=== PATIENT | female | born 1990 | race African-American/Black ===

== ENCOUNTER 2020-07-29 15:03 | Emergency (ER) | payer OTHER ==
[~2020-07-29] VITALS: Ht 177.8 cm; Wt 58.7 kg
[2020-07-29] MEDS ORDERED: dexameTHASONE 20MG/5ML VIAL (J1100 PER 1MG) IV ONE (15:30)
[2020-07-29 15:55] LABS: BASO % 0.4 % (0.0-1.0); EOS % 0.1 % (0.0-3.0); HEMATOCRIT 39.2 % (36.0-47.0); HEMOGLOBIN 13.2 g/dl (12.0-15.5); LYMPH # 1.7 10^3/uL (1.5-5.0); LYMPH % 16.7 % (24.0-44.0); MEAN CORPUSCULAR HEMOGLOBIN 30.8 pg (27.0-33.0); MEAN CORPUSCULAR HGB CONC 33.7 g/dl (32.0-36.5); MEAN CORPUSCULAR VOLUME 91.6 fl (80.0-96.0); MONO # 0.2 10^3/uL (0.0-0.8); MONO % 2.1 % (2.0-8.0); NEUTROPHILS # 8.2 10^3/uL (1.5-8.5); NEUTROPHILS % 80.3 % (36.0-66.0); PLATELET COUNT, AUTOMATED 286 10^3/uL (150-450); RED BLOOD COUNT 4.28 10^6/uL (4.00-5.40); WHITE BLOOD COUNT 10.2 10^3/uL (4.0-10.0)
--- NOTE | 2020-07-29 15:55 | REP ---
INDICATION: DYSPNEA/COUGH. COMPARISON: None. TECHNIQUE: Portable FINDINGS: The technique utilized in obtaining the radiograph has magnified the cardiac silhouette and accentuated the interstitial markings. The superior mediastinal structures are midline. The cardiac silhouette is unremarkable in size, shape, and position. The diaphragmatic surfaces of the lungs are regular, and the costophrenic angles are clear. The pulmonary resendiz are clear. The imaged osseous structures are intact. IMPRESSION: There is no acute cardiopulmonary disease. <Electronically signed by Lui Kemp > 07/29/20 0027
[2020-07-29] MEDS: ALBUTEROL 90 MCG/ACT 8GM HFA INHALER INH SCH ×3 (16:03→16:50)
[2020-07-29 16:08] LABS: INR 0.96
[2020-07-29 16:11] LABS: D-DIMER QUANT 466.54 ng/ml (<500)
[2020-07-29] MEDS ORDERED: ISOVUE-370 76% 100ML VIAL As Ordered ONE (16:51)
[2020-07-29] MEDS ORDERED: diazePAM 2 MG TAB PO ONE (17:15)
--- NOTE | 2020-07-29 18:04 | REPVR ---
PROCEDURE INFORMATION: Exam: CTA Chest With Contrast Exam date and time: 07/29/2020 5:18 PM Age: 30 years old Clinical indication: Chest pain; Additional info: Chest pain/ SOB TECHNIQUE: Imaging protocol: Computed tomographic angiography of the chest with contrast. 3D rendering (Not supervised by radiologist): MIP and/or 3D reconstructed images were created by the technologist. Radiation optimization: All CT scans at this facility use at least one of these dose optimization techniques: automated exposure control; mA and/or kV adjustment per patient size (includes targeted exams where dose is matched to clinical indication); or iterative reconstruction. Contrast material: ISOVUE 370; Contrast volume: 75 ml; Contrast route: INTRAVENOUS (IV); COMPARISON: [place] PORTABLE CHEST X-RAY 07/29/2020 3:42 PM FINDINGS: Pulmonary arteries: Normal. No pulmonary emboli. Aorta: Unremarkable. No aortic aneurysm. No aortic dissection. Lungs: Unremarkable. No consolidation. No masses. Pleural spaces: Unremarkable. No pneumothorax. No pleural effusion. Heart: Unremarkable. No cardiomegaly. No pericardial effusion. Lymph nodes: Unremarkable. No enlarged lymph nodes. Bones/joints: Unremarkable. No acute fracture. Soft tissues: Unremarkable. IMPRESSION: No acute findings. Electronically signed by: Hesham Babin On 07/29/2020 18:04:53 PM
[2020-07-29] MEDS ORDERED: POTASSIUM CHLORIDE 10 MEQ SR TABLET PO ONE (19:45)
[2020-07-29] MEDS ORDERED: KETOROLAC 30 MG/ML 1ML VIAL IV ONE (20:45)
[2020-07-29] MEDS ORDERED: NORCO, ANEXSIA 5/325MG TABLET (HYDROcodone/ACETAMINOPHEN) PO ONE (22:00)
[2020-07-29] MEDS ORDERED: PRED10TA2 PO (22:06)
[2020-07-29] MEDS ORDERED: KETO10TAB PO (22:06)
[2020-07-29] MEDS ORDERED: NORCO 5/325MG TABLET (BULK FOR ED) PO ONE (22:10)
[2020-07-29 22:22] VITALS: BP 134/89
--- NOTE | 2020-07-30 07:58 | ECGEPIP ---
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
== END 2020-07-29 22:32 | disposition home or self-care (01) ==
LOC: M ED 15:03
DX: R06.00 Dyspnea, unspecified (principal); J45.909 Unspecified asthma, uncomplicated
CPT/HCPCS: 71045; 71275; 80047; 84702; 85025; 85379; 85610; 93005; 93041; 94640; 94664; 94760; 96374; 96375; 99285; J1100; J1885; Q9967

== ENCOUNTER 2020-08-05 21:53 | Inpatient (IN) | payer OTHER ==
[~2020-08-05] VITALS: Ht 157.5 cm; Wt 57.9 kg
[~2020-08-05 21:53] MED LIST: KETO10TAB PO; PRED10TA2 PO
[2020-08-05] MEDS ORDERED: ALBU83IN NEB (22:33)
[2020-08-05] MEDS ORDERED: ALBU83IN INH (22:33)
[2020-08-05] MEDS ORDERED: KETOROLAC 60MG 2ML VIAL IM ONE (23:25)
[2020-08-05] MEDS ORDERED: methocarbamoL 750 MG TAB PO ONE (23:25)
[2020-08-05] MEDS ORDERED: KETOROLAC 30 MG/ML 1ML VIAL IV ONE (23:55)
--- NOTE | 2020-08-06 00:10 | REPVR ---
PROCEDURE INFORMATION: Exam: XR Chest Exam date and time: 08/05/2020 11:36 PM Age: 30 years old Clinical indication: Chest pain TECHNIQUE: Imaging protocol: XR of the chest. Views: 2 views. COMPARISON: 1. [place] PORTABLE CHEST X-RAY 2020-07-29 15:[address] ANGIO CHEST 2020-07-29 17:00 FINDINGS: Lungs: Unremarkable. No consolidation. Pleural spaces: Unremarkable. No pleural effusion. No pneumothorax. Heart/Mediastinum: Unremarkable. No cardiomegaly. Bones/joints: Unremarkable. IMPRESSION: No acute findings. Electronically signed by: Taye Nash On 08/06/2020 00:09:55 AM
[2020-08-06 00:38] LABS: BASO # 0.1 10^3/uL (0.0-0.2); BASO % 0.5 % (0.0-1.0); HEMOGLOBIN 14.4 g/dl (12.0-15.5); LYMPH # 1.2 10^3/uL (1.5-5.0); LYMPH % 11.7 % (24.0-44.0); MEAN CORPUSCULAR HGB CONC 34.3 g/dl (32.0-36.5); MEAN CORPUSCULAR VOLUME 90.3 fl (80.0-96.0); MONO # 0.2 10^3/uL (0.0-0.8); NEUTROPHILS # 8.5 10^3/uL (1.5-8.5); NEUTROPHILS % 85.4 % (36.0-66.0); PLATELET COUNT, AUTOMATED 317 10^3/uL (150-450); RED BLOOD COUNT 4.65 10^6/uL (4.00-5.40)
[2020-08-06] MEDS ORDERED: LEVALBUTEROL HFA 45MCG/ACT 15 GM INHALER INH ONE (00:45)
[2020-08-06 01:02] LABS: ALBUMIN 4.6 GM/DL (3.2-5.2); ALT/SGPT 14 U/L (12-78); BILIRUBIN,DIRECT 0.2 MG/DL (0.0-0.2); BILIRUBIN,TOTAL 0.8 MG/DL (0.2-1.0); CK-MB VALUE MASS < 1.0 NG/ML (<3.6); CPK CREATINE PHOSPHOKINASE 96 U/L (26-192); MB/CK RELATIVE INDEX 1.04 (< OR =4); TOTAL PROTEIN 8.6 GM/DL (6.4-8.2); TROPONIN I < 0.02 NG/ML (< 0.10)
[2020-08-06 01:54] LABS: VENOUS BASE EXCESS -5.3 (-2.0-2.0); VENOUS HCO3 16.2 MEQ/L (23.0-27.0); VENOUS PARTIAL PRESSURE CO2 22.4 mmHg (38.0-50.0); VENOUS PARTIAL PRESSURE O2 85.4 mmHg (30.0-50.0); VENOUS PH 7.477 UNITS (7.330-7.430); VENOUS STANDARD HCO3 20.1 MEQ/L; VENOUS TOTAL CO2 16.9 MEQ/L (24.0-28.0)
[2020-08-06] MEDS ORDERED: METHOCARBAMOL 1,000 MG/10 ML VIAL (J2800) IV ONE (02:20)
[2020-08-06] MEDS ORDERED: methylPREDNISolone 125MG 2ML VIAL IV ONE (02:30)
[2020-08-06 03:08] LABS: T UPTAKE 35 % (30-39); THYROXINE (T4) 11.5 UG/DL (4.5-12.0)
[2020-08-06] MEDS ORDERED: PRED10TA2 PO (04:57)
[2020-08-06] MEDS ORDERED: D31000TA2 PO (04:57)
[2020-08-06] MEDS ORDERED: KETO10TAB PO (04:57)
[2020-08-06] MEDS ORDERED: FLON1SPR (04:57)
[2020-08-06] MEDS ORDERED: PROAAER10 INH (04:57)
[2020-08-06] MEDS ORDERED: VITA-172 PO (04:57)
[2020-08-06] MEDS ORDERED: ALBU83IN INH (04:57)
[2020-08-06] MEDS ORDERED: GARL500C2 PO (04:57)
[2020-08-06] MEDS ORDERED: LEVALBUTEROL 1.25 MG/0.5 ML CONCENTRATE NEB INH PRN (05:20)
--- NOTE | 2020-08-06 05:39 | HPEPDOC ---
[facility] Medical History & Physical Date of Admission Aug 06, 2020 Date of Service: Aug 06, 2020 Other Provider PCP - Domingoaidan Saavedra Attending Physician: TAMIE BE MD History and Physical CHIEF COMPLAINT: Chest tightness and shortness of breath HISTORY OF PRESENT ILLNESS: This a 30-year-old female presented with compliaints of a 3 week history of chest tightness and shortness of breath that been getting worse over the past few weeks. She has a history of asthma and has been using her nebulizer machine more often over the past 3 weeks which temporarily alleviates the shortness of breath She was emergency department 1 week prior and was treated for shortness of breath; she had been on prednisone prior to coming to the emergency department and her prednisone dose was lowered at this time. With regards to the chest pain she feels that someone is squeezing her chest, rates it as very severe and she has never felt like this prior; it is worse when she walks around. Patient denies any cough. Patient denies any palpitations. While in the emergency department, patient's heart rate became elevated into the 180s with minimal ambulation so the decision was made to bring the patient into the hospital. REVIEW OF SYSTEMS: General: Patient denies fevers HEENT: Patient denies headaches Cardiovascular: Patient reports chest pain as described above Respiratory: Patient reports shortness of breath but denies coughing GI: Patient denies abdominal pain, nausea, vomiting, diarrhea : Patient denies increased frequency or pain with urination Extremities: Patient denies swelling or pain in extremities Neurological: Patient denies numbness or tingling in legs Skin: Patient denies any new rashes or lesions. Hematologic: Patient denies any easy bruising. Lymphatic: Patient denies any lumps lumps or bumps in neck, axilla, or groin PAST MEDICAL/SURGICAL HISTORY: Chronic Asthma. SOCIAL HISTORY: She is and lives with her , recently moved to the area as her is active duty . She currently does not work and has never worked with chemicals or other harmful exposures, denies smoking, drinking alcohol, or other illicit substances. FAMILY HISTORY: reviewed denies ALLERGIES: Please see below. HOME MEDICATIONS: Please see below. PHYSICAL EXAMINATION: VITAL SIGNS: Temperature 98.1, pulse 102, respiratory rate 22, blood pressure 135/87, pulse oximetry 100% on room air. General: Alert and oriented female patient who is laying on the stretcher and walked to the room. Patient did not appear to be in any acute distress. HEENT: Normocephalic, atraumatic, moist mucous membranes. Neck: No lymphadenopathy or thyromegaly Chest wall: Tenderness to palpation of the sternal costal junction ribs 2 through 4 bilaterally. Cardiac: Tachycardic rate, regular rhythm, no murmurs, normal S1, normal S2 Pulm: Clear to auscultation bilaterally. No wheezes, rhonchi, rales Abd: Nondistended, nontender to palpation, normal bowel sounds Ext: No edema bilateral lower extremities LABORATORY DATA: See below. IMAGING: A chest x-ray performed on 08/05/2020 was reported to show no acute findings MICROBIOLOGY: Please see below. ASSESSMENT: Patient is a 30-year-old female who presented to the emergency department with chest wall pain and shortness of breath who was found to be tachycardic at baseline and become extremely tachycardic with minimal exertion. . PLAN: 1. Tachycardia. Patient's heart rate is around or above 100 or she is resting. Patient's EKG shows sinus tachycardia. When the patient gets up and has minimal exertion, her heart rate goes up to the 180s and she says that the chest pressure that she is experiencing its worst. Patient's initial set of troponins were negative. Patient's TSH was within normal limits. D-dimer was within normal limits which makes pulmonary embolism low probability. Patient appears well- hydrated on examination. Patient does appear to become anxious when talking about her chest pain. Heart rate may be anxiety induced however, other organic causes must be ruled out. Patient will remain on telemetry. Will try a one time 1 L bolus to see if this affects her heart rate. 2. Asthma. I do not believe that the patient is in an asthma exacerbation based on examination. Patient did receive 1 dose of IV Solu-Medrol. Patient was in the process of a prednisone taper. We'll continue the prednisone taper. Levalbuterol nebulizers have been ordered for the patient if she become short of breath. DVT prophylaxis: Lovenox. Will encourage early ambulation. Dispo: home after less than 2 midnight's stay Vital Signs Vital Signs Date Time Temp Pulse Resp B/P (MAP) Pulse Ox O2 Delivery O2 Flow Rate FiO2 4/21/21 03:00 08/06/20 03:00 98.1 102 22 100 Room Air Laboratory Data Labs 24H Laboratory Tests 2 08/06/20 00:16: POC Glucose (Misc Panel) 98, POC Sodium (Misc Panel) 138, POC Potassium (Misc Panel) 3.6, POC Chloride (Misc Panel) 105, POC Total CO2 (Misc Panel) 20.0L, POC Blood Urea Nitrogen (Misc Panel 5L, POC Ionized Calcium (Misc Panel) 4.8, POC Creatinine (Misc Panel) 0.8, POC Hematocrit (Misc Panel) 44.0 08/06/20 00:18: POC Beta HCG, Quantitative < 5.0 08/06/20 00:22: Immature Granulocyte % (Auto) 0.4, Neutrophils (%) (Auto) 85.4H, Lymphocytes (%) (Auto) 11.7L, Monocytes (%) (Auto) 2.0, Eosinophils (%) (Auto) 0.0, Basophils (%) (Auto) 0.5, Neutrophils # (Auto) 8.5, Lymphocytes # (Auto) 1.2L, Monocytes # (Auto) 0.2, Eosinophils # (Auto) 0.0, Basophils # (Auto) 0.1, Nucleated Red Blood Cells % (auto) 0.0, D-Dimer, Quantitative 359.07, Magnesium Level 2.0, Total Bilirubin 0.8, Direct Bilirubin 0.2, Aspartate Amino Transf (AST/SGOT) 10, Alanine Aminotransferase (ALT/SGPT) 14, Alkaline Phosphatase 51, Total Creatine Kinase 96, Creatine Kinase MB < 1.0, Creatine Kinase MB Relative Index 1.04, Troponin I < 0.02, Total Protein 8.6H, Albumin 4.6, Albumin/Globulin Ratio 1.2, Thyroid Stimulating Hormone (TSH) 1.340, Free Thyroxine Index 4.0, Thyroxine (T4) 11.5, Triiodothyronine (T3) Uptake 35 08/06/20 00:39: Coronavirus (COVID-19)(PCR) NEGATIVE 08/06/20 01:47: Blood Gas Bicarbonate Standard 20.1, Venous Blood pH 7.477H, Venous Blood Partial Pressure CO2 22.4L, Venous Blood Partial Pressure O2 85.4H, Venous Blood Total Carbon Dioxide 16.9L, Venous Blood HCO3 16.2L, Venous Blood Oxygen Saturation 97.0H, Venous Blood Base Excess -5.3L CBC/BMP Laboratory Tests 08/06/20 00:22 Home Medications Scheduled Albuterol Sulf (Albuterol Sulfate) 2.5 Mg/3 Ml Vial.neb, 2.5 MG INH BID Cholecalciferol (Vitamin D3) (Vitamin D3) 1,000 Unit Tablet, 1,000 UNITS PO DAILY Cyanocobalamin (Vitamin B-12) (Vitamin B-12) 500 Mcg Tablet, 500 MCG PO DAILY Diltiazem Hcl (Cardizem Cd) 120 Mg Cap.er.24h, 240 MG PO DAILY Fluticasone Propionate (Flonase Allergy Relief) 9.9 Ml [place].susp, 2 SPRAYS NA DAILY Garlic (Garlic) 500 Mg Capsule, 500 MG PO DAILY Ibuprofen (Ibuprofen) 600 Mg Tablet, 600 MG PO QID Pantoprazole Sodium (Pantoprazole Sodium) 40 Mg Tablet.dr, 40 MG PO DAILY Scheduled PRN Albuterol Sulfate (Proair Hfa) 8.5 Gm Hfa.aer.ad, 2 PUFF INH Q4H PRN for S HORTNESS OF BREATH Hydroxyzine HCl (Hydroxyzine HCl) 25 Mg Tablet, 25 MG PO Q6HP PRN for ANXIETY Ketorolac Tromethamine (Ketorolac Tromethamine) 10 Mg Tablet, 10 MG PO Q6H PRN for PAIN Nitroglycerin (Nitrostat) 0.4 Mg Tab.subl, 0.4 MG SL Q5MP PRN for CHEST PAIN Allergies Coded Allergies: No Known Allergies (Unverified , 07/29/20) A-FIB/CHADSVASC A-FIB History Current/History of A-Fib/PAF?: No GME ATTESTATION GME ATTESTATION My faculty preceptor for this patient encounter was physically present during the encounter and was fully available. All aspects of the patient interview, examination, medical decision making process, and medical care plan development were reviewed and approved by the faculty preceptor. The faculty preceptor is aware and concurs with the plan as stated in the body of this note and will attest to such by his/her cosignature. ATTENDING NOTE time of service 720am I reviewed the note and agree with the findings as documented by with the following addition #Pleuritic chest pain Cause TBD Plan: give a trail of peptobismol, PPI and acetaminophen #Tachycardia Plan: we will keep her on telemetry / trend troponins / check Mg, TSH , urine catecholamines & UDS / IVF / f/u Echo to r/o cardiomyopathy RAYRAY NUNO DO Aug 06, 2020 05:39 TAMIE BE MD Aug 06, 2020 07:16
[2020-08-06 05:55] LABS: HEMATOCRIT 41.3 % (36.0-47.0); HEMOGLOBIN 13.8 g/dl (12.0-15.5); MEAN CORPUSCULAR HEMOGLOBIN 30.3 pg (27.0-33.0); MEAN CORPUSCULAR HGB CONC 33.4 g/dl (32.0-36.5); MEAN CORPUSCULAR VOLUME 90.8 fl (80.0-96.0); PLATELET COUNT, AUTOMATED 287 10^3/uL (150-450); RED BLOOD COUNT 4.55 10^6/uL (4.00-5.40); WHITE BLOOD COUNT 9.4 10^3/uL (4.0-10.0)
[2020-08-06] MEDS: ACETAMINOPHEN 650MG ER TAB (TYLENOL ARTHRITIS) PO SCH ×3 (06:00→21:13)
[2020-08-06 06:28] LABS: BLOOD UREA NITROGEN 5 MG/DL (7-18); CALCIUM LEVEL 10.4 MG/DL (8.5-10.1); CARBON DIOXIDE LEVEL 21 MEQ/L (21-32); CHLORIDE LEVEL 104 MEQ/L (98-107); GLOMERULAR FILTRATION RATE > 60.0 (>60); GLUCOSE, FASTING 92 MG/DL (70-100); POTASSIUM SERUM 3.9 MEQ/L (3.5-5.1); SODIUM LEVEL 138 MEQ/L (136-145)
[2020-08-06 06:29] LABS: ALBUMIN 4.4 GM/DL (3.2-5.2); ALT/SGPT 14 U/L (12-78); BILIRUBIN,TOTAL 0.8 MG/DL (0.2-1.0); TOTAL PROTEIN 8.5 GM/DL (6.4-8.2)
[2020-08-06] MEDS ORDERED: NS 1,000 ML IV ONE (06:45)
[2020-08-06] MEDS ORDERED: FAMOTIDINE 20 MG TAB PO ONE (08:00)
[2020-08-06] MEDS ORDERED: PANTOPRAZOLE 40MG TAB (PROTONIX) PO ONE (08:00)
[2020-08-06] MEDS: CYANOCOBALAMIN 500 MCG TAB PO SCH (08:08)
[2020-08-06] MEDS: ENOXAPARIN 40MG/0.4ML SYRINGE (J1650 PER 10MG) SC SCH (08:08)
[2020-08-06] MEDS: predniSONE 10 MG TAB PO SCH (08:09)
[2020-08-06] MEDS: VITAMIN D 1,000 INTERNATIONAL UNITS TABLET PO SCH (08:09)
[2020-08-06 08:14] LABS: TROPONIN I < 0.02 NG/ML (< 0.10)
--- NOTE | 2020-08-06 11:19 | IPNPDOC ---
Subjective Date Seen The patient was seen on 08/06/20. Subjective Chief Complaint/HPI Ms. Valdez is a 30 year old female with asthma who presents with atypical chest pain and dyspnea and found to have SVT. She was seen in the ED this morning. Still reports chest tightness and dyspnea. Denies history of hemoptysis, travel, or malignancy. Denies family history of sickle cell. Denies having family members having sickle cell. Objective Physical Examination General Exam: Positive: Alert, Cooperative, Mild Distress Eye Exam: Positive: EOMI; Negative: Sclera icteric ENT Exam: Positive: Atraumatic Neck Exam: Positive: Supple Chest Exam: Positive: Clear to auscultation; Negative: Rales, Rhonchi, Wheezing Heart Exam: Positive: Tachycardic Abdomen Exam: Positive: Normal bowel sounds, Soft; Negative: Tenderness Extremity Exam: Negative: Edema Psych Exam: Positive: Mental status NL, Anxiety Assessment /Plan Assessment Ms. Valdez is a 30 year old female with asthma who presents with atypical chest pain and dyspnea and found to have SVT. She is on albuterol which would accelerate rhythm. P-waves are present, not afib. Denies sickle cell and D-dimer low (unlikley PE). Pending echocardiogram. Plan/VTE VTE Prophylaxis Ordered?: Yes Plan 1. SVT -She was in the 180s in the ED. No in the 100s -Chest pressure and dyspnea -Unlikely to have PE (low D-dimer). Denies history of malignancy or sickle cell -Pending Echocardiogram 2. Asthma -Lungs are clear, no wheezing, SpO2 in room was 100% -She has respiratory alkalosis with low pCO2. From rapid breathing 3. DVT [facility]/I&O Vital Signs Date Time Temp Pulse Resp B/P (MAP) Pulse Ox O2 Delivery O2 Flow Rate FiO2 08/06/20 10:08 85 100 08/06/20 10:00 116/79 (91) 08/06/20 06:38 118 Room Air 08/06/20 03:00 98.1 Laboratory Data 24H LABS Laboratory Tests 2 08/06/20 00:16: POC Glucose (Misc Panel) 98, POC Sodium (Misc Panel) 138, POC Potassium (Misc Panel) 3.6, POC Chloride (Misc Panel) 105, POC Total CO2 (Misc Panel) 20.0L, POC Blood Urea Nitrogen (Misc Panel 5L, POC Ionized Calcium (Misc Panel) 4.8, POC Creatinine (Misc Panel) 0.8, POC Hematocrit (Misc Panel) 44.0 08/06/20 00:18: POC Beta HCG, Quantitative < 5.0 08/06/20 00:22: Immature Granulocyte % (Auto) 0.4, Neutrophils (%) (Auto) 85.4H, Lymphocytes (%) (Auto) 11.7L, Monocytes (%) (Auto) 2.0, Eosinophils (%) (Auto) 0.0, Basophils (%) (Auto) 0.5, Neutrophils # (Auto) 8.5, Lymphocytes # (Auto) 1.2L, Monocytes # (Auto) 0.2, Eosinophils # (Auto) 0.0, Basophils # (Auto) 0.1, Nucleated Red Blood Cells % (auto) 0.0, D-Dimer, Quantitative 359.07, Magnesium Level 2.0, Total Bilirubin 0.8, Direct Bilirubin 0.2, Aspartate Amino Transf (AST/SGOT) 10, Alanine Aminotransferase (ALT/SGPT) 14, Alkaline Phosphatase 51, Total Creatine Kinase 96, Creatine Kinase MB < 1.0, Creatine Kinase MB Relative Index 1.04, Troponin I < 0.02, Total Protein 8.6H, Albumin 4.6, Albumin/Globulin Ratio 1.2, Thyroid Stimulating Hormone (TSH) 1.340, Free Thyroxine Index 4.0, Thyroxine (T4) 11.5, Triiodothyronine (T3) Uptake 35 08/06/20 00:39: Coronavirus (COVID-19)(PCR) NEGATIVE 08/06/20 01:47: Blood Gas Bicarbonate Standard 20.1, Venous Blood pH 7.477H, Venous Blood Partial Pressure CO2 22.4L, Venous Blood Partial Pressure O2 85.4H, Venous Blood Total Carbon Dioxide 16.9L, Venous Blood HCO3 16.2L, Venous Blood Oxygen Saturation 97.0H, Venous Blood Base Excess -5.3L 08/06/20 05:38: Nucleated Red Blood Cells % (auto) 0.0, Anion Gap 13, Glomerular Filtration Rate > 60.0, Calcium Level 10.4H, Total Bilirubin 0.8, Aspartate Amino Transf (AST/SGOT) 9, Alanine Aminotransferase (ALT/SGPT) 14, Alkaline Phosphatase 49, Troponin I < 0.02, Total Protein 8.5H, Albumin 4.4, Albumin/Globulin Ratio 1.1L CBC/BMP Laboratory Tests 08/06/20 00:22 08/06/20 05:38 RADHA CAMPA DO Aug 06, 2020 11:19
[2020-08-06 12:27] VITALS: BP 144/82
[2020-08-06 15:11] LABS: AMPHETAMINES LEVEL URINE NEGATIVE (NEGATIVE); BARBITURATES URINE NEGATIVE (NEGATIVE); BENZODIAZEPINES URINE NEGATIVE (NEGATIVE); CANNABINOIDS URINE NEGATIVE (NEGATIVE); COCAINE METABOLITE URINE NEGATIVE (NEGATIVE); METHADONE URINE NEGATIVE (NEGATIVE); OPIATES URINE NEGATIVE (NEGATIVE); PHENCYCLIDINE URINE NEGATIVE (NEGATIVE)
[2020-08-06] MEDS: FLUTICASONE PROP 0.05% NASAL SPRAY 16 GM (FLONASE) SCH (15:36)
[2020-08-06 16:00] VITALS: BP 142/84
[2020-08-06 20:21] VITALS: BP 128/82
--- NOTE | 2020-08-06 20:49 | ECGEPIP ---
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
[2020-08-06 22:00] VITALS: BP 128/82
[2020-08-07] VITALS (8 sets, daily range): BP systolic 106–142; BP diastolic 66–89; PULSE 100–111
[2020-08-07] MEDS: ACETAMINOPHEN 650MG ER TAB (TYLENOL ARTHRITIS) PO SCH ×3 (05:30→21:41)
[2020-08-07 07:00] LABS: HEMATOCRIT 36.4 % (36.0-47.0); MEAN CORPUSCULAR HEMOGLOBIN 30.8 pg (27.0-33.0); MEAN CORPUSCULAR VOLUME 93.6 fl (80.0-96.0); PLATELET COUNT, AUTOMATED 255 10^3/uL (150-450); RED BLOOD COUNT 3.89 10^6/uL (4.00-5.40); WHITE BLOOD COUNT 11.7 10^3/uL (4.0-10.0)
[2020-08-07 07:12] LABS: BLOOD UREA NITROGEN 10 MG/DL (7-18); CALCIUM LEVEL 8.8 MG/DL (8.5-10.1); CARBON DIOXIDE LEVEL 24 MEQ/L (21-32); CHLORIDE LEVEL 111 MEQ/L (98-107); CREATININE FOR GFR 1.05 MG/DL (0.55-1.30); GLOMERULAR FILTRATION RATE > 60.0 (>60); GLUCOSE, FASTING 89 MG/DL (70-100); POTASSIUM SERUM 3.9 MEQ/L (3.5-5.1); SODIUM LEVEL 140 MEQ/L (136-145)
[2020-08-07] MEDS: CYANOCOBALAMIN 500 MCG TAB PO SCH (10:04)
[2020-08-07] MEDS: CETIRIZINE (ZyrTEC) 10 MG TAB PO SCH (10:04)
[2020-08-07] MEDS: VITAMIN D 1,000 INTERNATIONAL UNITS TABLET PO SCH (10:04)
[2020-08-07] MEDS: predniSONE 10 MG TAB PO SCH (10:05)
[2020-08-07] MEDS: ENOXAPARIN 40MG/0.4ML SYRINGE (J1650 PER 10MG) SC SCH (10:06)
[2020-08-07] MEDS: FLUTICASONE PROP 0.05% NASAL SPRAY 16 GM (FLONASE) SCH (10:06)
--- NOTE | 2020-08-07 12:40 | ECGEPIP ---
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
[2020-08-07] MEDS ORDERED: ISOVUE-370 76% 100ML VIAL As Ordered ONE (16:18)
--- NOTE | 2020-08-07 16:48 | REP ---
INDICATION: Chest pain and dyspnea. COMPARISON: Comparison chest CT study July 29, 2020.. TECHNIQUE: Contrast dose: Seventy-five ML of Isovue [address] technique: Helical scanning is acquired and overlapping 1.5 mm and contiguous 3 mm axial images are reformatted. In addition, maximum intensity projection and multiplanar re-formation images are generated in sagittal and coronal imaging projections. FINDINGS: There is good opacification in the pulmonary arterial tree. There is no evidence of vessel cut off or filling defect to suggest pulmonary embolus. Homogeneous opacity is seen in the thoracic aorta. There is no evidence of aneurysm or dissection. Lung window settings demonstrate no evidence of infiltrate, lung mass, atelectasis or significant pulmonary nodule. There is no evidence of pleural or pericardial effusion. No hilar or mediastinal mass or adenopathy is observed. In the upper abdomen, no adrenal abnormality is seen. The visualized liver, spleen, pancreas, and gallbladder are unremarkable. Bone window settings show no evidence of bony destructive lesion or fracture. IMPRESSION: No CT evidence of pulmonary embolus. Negative CT pulmonary angiogram. No change from July 29, 2020 study. <Electronically signed by Zach Davis > 08/07/20 0286
[2020-08-07] MEDS: METOPROLOL TART 25 MG TABLET PO SCH (18:02)
[2020-08-07] MEDS: NITROGLYCERIN 0.4 MG SUBL TABLET SL PRN ×2 (18:16→18:24)
[2020-08-07] MEDS: NS 1,000 ML IV SCH (18:51)
--- NOTE | 2020-08-07 19:32 | IPNPDOC ---
Subjective Date Seen The patient was seen on 08/07/20. Subjective Chief Complaint/HPI Ms. Valdez is a 30 year old female with asthma who presents with atypical chest pain and dyspnea and found to have SVT. She was doing well in the morning. Chest pain and dyspnea improved and heart rate was in the 90s. I spoke with Dr. Saavedra and he had recommended obtaining CT angio chest. CT angio chest was negative. Afterwards, patient suddenly had an increase in heart rate to 160s. It was regular. She was having chest pain and dyspnea. She could not perform a vagal maneuver such as cough or bear down. SBP was in the 130s. I was transferring her to PCU to give adenosine, but her heart rate went down to 140s, then 120s. I gave her PO Lopressor 25mg and scheduled it for BID. While in PCU, she still had chest pain. Did a trial of sublingual nitro which did help. Heart rate went up to 130s, and blood pressure decreased slightly. I consulted Dr. Saavedra and started patient on IV fluids. Objective Physical Examination General Exam: Positive: Alert, Cooperative, Mild Distress Eye Exam: Positive: EOMI; Negative: Sclera icteric ENT Exam: Positive: Atraumatic Neck Exam: Positive: Supple Chest Exam: Positive: Clear to auscultation; Negative: Rales, Rhonchi, Wheezing Heart Exam: Positive: Tachycardic Abdomen Exam: Positive: Normal bowel sounds, Soft; Negative: Tenderness Extremity Exam: Negative: Edema Psych Exam: Positive: Mental status NL, Anxiety Assessment /Plan Assessment Ms. Valdez is a 30 year old female with asthma who presents with atypical chest pain and dyspnea and found to have SVT. She is on albuterol which would accelerate rhythm. P-waves are present, not afib. Denies sickle cell and D-dimer low. Pending echocardiogram. Cardiology consulted, recommendations appreciated. Plan/VTE VTE Prophylaxis Ordered?: Yes Plan 1. SVT -She was in the 180s in the ED. No in the 100s -Chest pressure and dyspnea -Unlikely to have PE (low D-dimer). Denies history of malignancy or sickle cell -Pending Echocardiogram -Started patient on Lopressor 25mg BID -Started on IVF -Cardiology consulted, recommendations appreciated 2. Asthma -Lungs are clear, no wheezing, SpO2 in room was 100% -She has respiratory alkalosis with low pCO2. From rapid breathing 3. Chest pain and dyspnea -Lungs clear and troponin negative -Possible sickle cell crisis? -IVF -Sickle Cell Screen 4. DVT -Lovenox VS, I&O, 24H, Fishbone Vital Signs/I&O Vital Signs Date Time Temp Pulse Resp B/P (MAP) Pulse Ox O2 Delivery O2 Flow Rate FiO2 08/07/20 18:24 116/60 08/07/20 18:02 110 08/07/20 18:00 98.0 20 100 Room Air I&O- Last 24 Hours up to 6 AM 08/07/20 06:00 Intake Total 2440 ml Output Total 700 ml Balance 1740 ml Laboratory Data 24H LABS Laboratory Tests 2 08/07/20 06:24: Nucleated Red Blood Cells % (auto) 0.0, Anion Gap 5L, Glomerular Filtration Rate > 60.0, Calcium Level 8.8# 08/07/20 18:28: Troponin I < 0.02 CBC/BMP Laboratory Tests 08/07/20 06:24 RADHA CAMPA DO Aug 07, 2020 19:32
--- NOTE | 2020-08-07 20:29 | ECGEPIP ---
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
--- NOTE | 2020-08-07 20:36 | ECGEPIP ---
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
[2020-08-08] VITALS: PULSE 95
[2020-08-08 04:00] VITALS: BP 104/66; PULSE 100
[2020-08-08] MEDS: ACETAMINOPHEN 650MG ER TAB (TYLENOL ARTHRITIS) PO SCH ×3 (05:32→21:18)
[2020-08-08] MEDS: NS 1,000 ML IV SCH ×2 (05:34→21:17)
[2020-08-08 06:10] LABS: RED BLOOD COUNT 3.51 10^6/uL (4.00-5.40); WHITE BLOOD COUNT 8.9 10^3/uL (4.0-10.0)
[2020-08-08 06:11] LABS: HEMATOCRIT 33.5 % (36.0-47.0); HEMOGLOBIN 10.8 g/dl (12.0-15.5); MEAN CORPUSCULAR HEMOGLOBIN 30.8 pg (27.0-33.0); MEAN CORPUSCULAR HGB CONC 32.2 g/dl (32.0-36.5); MEAN CORPUSCULAR VOLUME 95.4 fl (80.0-96.0); PLATELET COUNT, AUTOMATED 219 10^3/uL (150-450)
[2020-08-08 06:31] LABS: BLOOD UREA NITROGEN 10 MG/DL (7-18); CALCIUM LEVEL 8.8 MG/DL (8.5-10.1); CARBON DIOXIDE LEVEL 23 MEQ/L (21-32); CHLORIDE LEVEL 112 MEQ/L (98-107); CREATININE FOR GFR 0.95 MG/DL (0.55-1.30); GLOMERULAR FILTRATION RATE > 60.0 (>60); GLUCOSE, FASTING 77 MG/DL (70-100); POTASSIUM SERUM 3.9 MEQ/L (3.5-5.1); SODIUM LEVEL 141 MEQ/L (136-145); TROPONIN I < 0.02 NG/ML (< 0.10)
[2020-08-08 08:00] VITALS: BP 125/74
[2020-08-08] MEDS: CYANOCOBALAMIN 500 MCG TAB PO SCH (10:03)
[2020-08-08] MEDS: predniSONE 10 MG TAB PO SCH (10:03)
[2020-08-08] MEDS: CETIRIZINE (ZyrTEC) 10 MG TAB PO SCH (10:03)
[2020-08-08] MEDS: METOPROLOL TART 25 MG TABLET PO SCH ×2 (10:03→21:19)
[2020-08-08] MEDS: VITAMIN D 1,000 INTERNATIONAL UNITS TABLET PO SCH (10:03)
[2020-08-08] MEDS: ENOXAPARIN 40MG/0.4ML SYRINGE (J1650 PER 10MG) SC SCH (10:04)
[2020-08-08] MEDS: FLUTICASONE PROP 0.05% NASAL SPRAY 16 GM (FLONASE) SCH (10:04)
[2020-08-08 12:00] VITALS: BP 119/75
[2020-08-08] MEDS ORDERED: KETOROLAC 30 MG/ML 1ML VIAL IV PRN (12:20)
--- NOTE | 2020-08-08 13:52 | IPNPDOC ---
Subjective Date Seen The patient was seen on 08/08/20. Subjective Chief Complaint/HPI Ms. Valdez is a 30 year old female with asthma who presents with atypical chest pain and dyspnea and found to have SVT. She did not sleep well last night. She felt chest tightness and dyspnea. Heart rate better controlled with metoprolol, but she has not gotten out of bed. Still has chest tightness and dyspnea. Repeat EKG demonstrates NSR. Discussed case with Dr. Saavedra. Dr. Saavedra recommended Colchicine, and he will see the patient later in the afternoon. Objective Physical Examination General Exam: Positive: Alert, Cooperative, Mild Distress Eye Exam: Positive: EOMI; Negative: Sclera icteric ENT Exam: Positive: Atraumatic Neck Exam: Positive: Supple Chest Exam: Positive: Clear to auscultation; Negative: Rales, Rhonchi, Wheezing Heart Exam: Positive: Rate Normal, Regular Rhythm Abdomen Exam: Positive: Normal bowel sounds, Soft; Negative: Tenderness Extremity Exam: Negative: Edema Psych Exam: Positive: Mental status NL, Anxiety Assessment /Plan Assessment Ms. Valdez is a 30 year old female with asthma who presents with atypical chest pain and dyspnea and found to have SVT. She is on albuterol which would accelerate rhythm. P-waves are present, not afib. Denies sickle cell and D-dimer low. Pending echocardiogram. Cardiology consulted, recommendations appreciated. Plan/VTE VTE Prophylaxis Ordered?: Yes Plan 1. SVT -She was in the 180s in the ED. No in the 100s -Chest pressure and dyspnea -Unlikely to have PE (low D-dimer). Denies history of malignancy or sickle cell -Pending Echocardiogram -Started patient on Lopressor 25mg BID -Started on IVF -Cardiology consulted, recommendations appreciated 2. Asthma -Lungs are clear, no wheezing, SpO2 in room was 100% -She has respiratory alkalosis with low pCO2. From rapid breathing 3. Chest pain and dyspnea -Lungs clear and troponin negative -Sickle cell screen negative -IVF -Spoke with Dr. Saavedra, recommending trying colchicine 4. DVT -Lovenox Disposition: Pending cardiology recommendations and clinical improvement VS, I&O, 24H, Fishbone Vital Signs/I&O Vital Signs Date Time Temp Pulse Resp B/P (MAP) Pulse Ox O2 Delivery O2 Flow Rate FiO2 08/08/20 12:00 96.7 97 20 119/75 (90) 100 Room Air 08/07/20 20:00 2.0 I&O- Last 24 Hours up to 6 AM 08/08/20 05:59 Intake Total 360 ml Output Total 1450 ml Balance -1090 ml Laboratory Data 24H LABS Laboratory Tests 2 08/07/20 18:28: Troponin I < 0.02 08/07/20 19:30: Sickle Cell Screen NEGATIVE 08/08/20 00:10: Troponin I < 0.02 08/08/20 05:26: Troponin I < 0.02, Nucleated Red Blood Cells % (auto) 0.0, Anion Gap 6L, Glomerular Filtration Rate > 60.0, Calcium Level 8.8 CBC/BMP Laboratory Tests 08/08/20 05:26 RADHA CAMPA DO Aug 08, 2020 13:52
[2020-08-08] MEDS: COLCHICINE 0.6 MG TABLET PO SCH ×2 (14:42→21:18)
[2020-08-08] MEDS ORDERED: hydrOXYzine 25 MG TAB PO PRN (15:35)
[2020-08-08 16:00] VITALS: BP 112/77
[2020-08-08 20:00] VITALS: BP 113/75
--- NOTE | 2020-08-08 20:41 | ECGEPIP ---
[facility] Test Date: 2020-08-08 Pat Name: ESTRELLA HYDE Department: Room: [place] [address] Gender: Female [employer]: RAD : 1990 Requested By: RADHA Powell Order Number: [id number] Reading MD: Elton Carter Measurements Intervals [place] Rate: 69 P: 12 HI: 180 QRS: 45 QRSD: 82 T: 44 QT: 392 QTc: 420 Interpretive Statements Sinus rhythm with marked sinus arrhythmia Nonspecific ST and T wave abnormality COMPARED TO 08/07/20 HR IS SLOWER AND STT ABNORMALITIES ARE NEW Electronically Signed on 08-08-2020 20:40:45 EDT by Elton Carter
[2020-08-09] VITALS: BP 111/73
[2020-08-09 04:00] VITALS: BP 114/77
[2020-08-09 05:11] LABS: HEMATOCRIT 33.7 % (36.0-47.0); HEMOGLOBIN 10.9 g/dl (12.0-15.5); MEAN CORPUSCULAR HEMOGLOBIN 30.7 pg (27.0-33.0); MEAN CORPUSCULAR HGB CONC 32.3 g/dl (32.0-36.5); MEAN CORPUSCULAR VOLUME 94.9 fl (80.0-96.0); PLATELET COUNT, AUTOMATED 211 10^3/uL (150-450); RED BLOOD COUNT 3.55 10^6/uL (4.00-5.40)
[2020-08-09 05:31] LABS: BLOOD UREA NITROGEN 8 MG/DL (7-18); CALCIUM LEVEL 8.1 MG/DL (8.5-10.1); CARBON DIOXIDE LEVEL 22 MEQ/L (21-32); CHLORIDE LEVEL 111 MEQ/L (98-107); CREATININE FOR GFR 0.83 MG/DL (0.55-1.30); GLOMERULAR FILTRATION RATE > 60.0 (>60); GLUCOSE, FASTING 70 MG/DL (70-100); POTASSIUM SERUM 3.6 MEQ/L (3.5-5.1); SODIUM LEVEL 142 MEQ/L (136-145)
[2020-08-09] MEDS: ACETAMINOPHEN 650MG ER TAB (TYLENOL ARTHRITIS) PO SCH ×3 (05:36→20:47)
[2020-08-09 08:01] VITALS: BP 107/69
[2020-08-09] MEDS: COLCHICINE 0.6 MG TABLET PO SCH ×2 (08:45→20:46)
[2020-08-09] MEDS: CETIRIZINE (ZyrTEC) 10 MG TAB PO SCH (08:45)
[2020-08-09] MEDS: CYANOCOBALAMIN 500 MCG TAB PO SCH (08:45)
[2020-08-09] MEDS: predniSONE 10 MG TAB PO SCH (08:45)
[2020-08-09] MEDS: VITAMIN D 1,000 INTERNATIONAL UNITS TABLET PO SCH (08:45)
[2020-08-09] MEDS: ENOXAPARIN 40MG/0.4ML SYRINGE (J1650 PER 10MG) SC SCH (08:46)
[2020-08-09] MEDS: FLUTICASONE PROP 0.05% NASAL SPRAY 16 GM (FLONASE) SCH (08:47)
[2020-08-09] MEDS: METOPROLOL TART 25 MG TABLET PO SCH ×2 (09:00→20:46)
[2020-08-09 12:00] VITALS: BP 100/67
--- NOTE | 2020-08-09 15:52 | IPNPDOC ---
Subjective Date Seen The patient was seen on 08/09/20. Subjective Chief Complaint/HPI Ms. Valdez is a 30 year old female with asthma who presents with atypical chest pain and dyspnea and found to have SVT and pericarditis. After starting the colchicine, her chest pain and dyspnea improved, pain is now 4/10. Objective Physical Examination General Exam: Positive: Alert, Cooperative Eye Exam: Positive: EOMI; Negative: Sclera icteric ENT Exam: Positive: Atraumatic Neck Exam: Positive: Supple Chest Exam: Positive: Clear to auscultation; Negative: Rales, Rhonchi, Wheezing Heart Exam: Positive: Rate Normal, Regular Rhythm Abdomen Exam: Positive: Normal bowel sounds, Soft; Negative: Tenderness Extremity Exam: Negative: Edema Psych Exam: Positive: Mental status NL, Anxiety Assessment /Plan Assessment Ms. Valdez is a 30 year old female with asthma who presents with atypical chest pain and dyspnea and found to have SVT and pericarditis. Echocardiogram official report pending. Cardiology consulted, recommendations appreciated. Plan/VTE VTE Prophylaxis Ordered?: Yes Plan 1. Pericarditis -No extrenuous activity -Colchicine BID -Wean off prednisone and start NSAID tomorrow -After starting NSAID tomorrow, change tylenol to PRN -Cardiology consulted, recommendations appreciated 2. Asthma -Lungs are clear, no wheezing, SpO2 in room was 100% -She has respiratory alkalosis with low pCO2, from rapid breathing 3. DVT -Lovenox Disposition: Pending clinical improvement. Will wean off of prednisone and swi tch to NSAIDs tomorrow. Then switch Tylenol to PRN. VS, I&O, 24H, Fishbone Vital Signs/I&O Vital Signs Date Time Temp Pulse Resp B/P (MAP) Pulse Ox O2 Delivery O2 Flow Rate FiO2 08/09/20 12:00 97.5 84 18 100/67 (78) 99 08/09/20 08:01 Room Air 08/07/20 20:00 2.0 I&O- Last 24 Hours up to 6 AM 08/09/20 06:00 Intake Total 1920 ml Output Total 600 ml Balance 1320 ml Laboratory Data 24H LABS Laboratory Tests 2 08/09/20 04:45: Nucleated Red Blood Cells % (auto) 0.0, Anion Gap 9, Glomerular Filtration Rate > 60.0, Calcium Level 8.1L 08/09/20 10:22: Erythrocyte Sedimentation Rate 12, C-Reactive Protein, Quantitative < 0.30 CBC/BMP Laboratory Tests 08/09/20 04:45 RADHA CAMPA DO Aug 09, 2020 15:52
[2020-08-09 16:00] VITALS: BP 113/77
[2020-08-09 20:00] VITALS: BP 111/70
[2020-08-10] VITALS (9 sets, daily range): BP systolic 108–132; BP diastolic 71–91
[2020-08-10] MEDS: COLCHICINE 0.6 MG TABLET PO SCH ×2 (03:46→20:46)
[2020-08-10] MEDS ORDERED: IBUPROFEN 800 MG TAB PO ONE (03:50)
[2020-08-10] MEDS ORDERED: METOPROLOL TART 25 MG TABLET PO ONE (03:55)
[2020-08-10] MEDS ORDERED: LORazepam 2 MG/ML VIAL IV STA (04:34)
[2020-08-10] MEDS ORDERED: LORazepam 2 MG/ML VIAL As Ordered ONE (04:43)
[2020-08-10] MEDS: hydrOXYzine 25 MG TAB PO PRN ×2 (04:51→14:40)
[2020-08-10] MEDS: ACETAMINOPHEN 650MG ER TAB (TYLENOL ARTHRITIS) PO SCH (06:06)
[2020-08-10 07:16] LABS: HEMATOCRIT 32.8 % (36.0-47.0); HEMOGLOBIN 10.9 g/dl (12.0-15.5); MEAN CORPUSCULAR HEMOGLOBIN 31.1 pg (27.0-33.0); MEAN CORPUSCULAR HGB CONC 33.2 g/dl (32.0-36.5); MEAN CORPUSCULAR VOLUME 93.4 fl (80.0-96.0); PLATELET COUNT, AUTOMATED 220 10^3/uL (150-450); RED BLOOD COUNT 3.51 10^6/uL (4.00-5.40); WHITE BLOOD COUNT 11.2 10^3/uL (4.0-10.0)
[2020-08-10 07:35] LABS: BLOOD UREA NITROGEN 5 MG/DL (7-18); CALCIUM LEVEL 8.7 MG/DL (8.5-10.1); CARBON DIOXIDE LEVEL 23 MEQ/L (21-32); CHLORIDE LEVEL 110 MEQ/L (98-107); CREATININE FOR GFR 0.74 MG/DL (0.55-1.30); GLOMERULAR FILTRATION RATE > 60.0 (>60); GLUCOSE, FASTING 78 MG/DL (70-100); POTASSIUM SERUM 3.2 MEQ/L (3.5-5.1); SODIUM LEVEL 140 MEQ/L (136-145)
[2020-08-10] MEDS: FLUTICASONE PROP 0.05% NASAL SPRAY 16 GM (FLONASE) SCH (09:00)
[2020-08-10] MEDS ORDERED: predniSONE 10 MG TAB PO SCH (09:00)
[2020-08-10] MEDS: VITAMIN D 1,000 INTERNATIONAL UNITS TABLET PO SCH (09:16)
[2020-08-10] MEDS: PANTOPRAZOLE 40MG TAB (PROTONIX) PO SCH (09:16)
[2020-08-10] MEDS: CYANOCOBALAMIN 500 MCG TAB PO SCH (09:16)
[2020-08-10] MEDS: METOPROLOL TART 25 MG TABLET PO SCH ×2 (09:17→20:46)
[2020-08-10] MEDS: IBUPROFEN 800 MG TAB PO SCH ×2 (09:18→14:40)
[2020-08-10] MEDS ORDERED: IBUPROFEN 800 MG TAB PO SCH (17:00)
--- NOTE | 2020-08-10 17:49 | IPNPDOC ---
Subjective Date Seen The patient was seen on 08/10/20. Subjective Chief Complaint/HPI Ms. Valdez is a 30 year old female with asthma who presents with atypical chest pain and dyspnea and found to have SVT and pericarditis. Last night, her heart rate increased and she started to have chest pain again. Pain regimen changed from scheduled acetaminophen to scheduled Ibuprofen, continue colchicine, and PRN acetaminophen. Otherwise, she felt better when seen in the morning. She still is limited physically. She had chest pain on ambulation to bathroom. Objective Physical Examination General Exam: Positive: Alert, Cooperative Eye Exam: Positive: EOMI; Negative: Sclera icteric ENT Exam: Positive: Atraumatic Neck Exam: Positive: Supple Chest Exam: Positive: Clear to auscultation; Negative: Rales, Rhonchi, Wheezing Heart Exam: Positive: Rate Normal, Regular Rhythm Abdomen Exam: Positive: Normal bowel sounds, Soft; Negative: Tenderness Extremity Exam: Negative: Edema Psych Exam: Positive: Mental status NL, Anxiety Assessment /Plan Assessment Ms. Valdez is a 30 year old female with asthma who presents with atypical chest pain and dyspnea and found to have SVT and pericarditis. Echocardiogram official report pending. Cardiology consulted, recommendations appreciated. Will need at least 3 months of colchicine. Will continue scheduled Ibuprofen until symptoms a re well controlled. Then start taper over 1 to 2 weeks. She will need to avoid extraneous activity. Plan/VTE VTE Prophylaxis Ordered?: Yes Plan 1. Pericarditis -No extraneous activity -Colchicine BID -Scheduled ibuprofen -Cardiology consulted, recommendations appreciated 2. Asthma -Lungs are clear, no wheezing, SpO2 in room was 100% -She has respiratory alkalosis with low pCO2, from rapid breathing 3. DVT -Lovenox Disposition: Pending clinical improvement VS, I&O, 24H, Fishbone Vital Signs/I&O Vital Signs Date Time Temp Pulse Resp B/P (MAP) Pulse Ox O2 Delivery O2 Flow Rate FiO2 08/10/20 14:00 98.2 82 20 128/77 (94) 100 08/10/20 10:00 Room Air 08/07/20 20:00 2.0 I&O- Last 24 Hours up to 6 AM 08/10/20 06:00 Intake Total 3060 ml Output Total 2850 ml Balance 210 ml Laboratory Data 24H LABS Laboratory Tests 2 08/10/20 06:53: Nucleated Red Blood Cells % (auto) 0.0, Anion Gap 7L, Glomerular Filtration Rate > 60.0, Calcium Level 8.7 CBC/BMP Laboratory Tests 08/10/20 06:53 RADHA CAMPA DO Aug 10, 2020 17:49
[2020-08-10] MEDS: IBUPROFEN 600MG TAB PO SCH ×2 (18:51→20:46)
[2020-08-11] VITALS (7 sets, daily range): BP systolic 98–139; BP diastolic 62–89; PULSE 145
[2020-08-11] MEDS: hydrOXYzine 25 MG TAB PO PRN ×3 (04:00→20:38)
[2020-08-11 06:38] LABS: HEMATOCRIT 34.5 % (36.0-47.0); HEMOGLOBIN 11.3 g/dl (12.0-15.5); MEAN CORPUSCULAR HEMOGLOBIN 30.6 pg (27.0-33.0); MEAN CORPUSCULAR HGB CONC 32.8 g/dl (32.0-36.5); MEAN CORPUSCULAR VOLUME 93.5 fl (80.0-96.0); PLATELET COUNT, AUTOMATED 205 10^3/uL (150-450); RED BLOOD COUNT 3.69 10^6/uL (4.00-5.40)
[2020-08-11 06:53] LABS: BLOOD UREA NITROGEN 5 MG/DL (7-18); CALCIUM LEVEL 8.3 MG/DL (8.5-10.1); CARBON DIOXIDE LEVEL 23 MEQ/L (21-32); CHLORIDE LEVEL 111 MEQ/L (98-107); CREATININE FOR GFR 0.85 MG/DL (0.55-1.30); GLOMERULAR FILTRATION RATE > 60.0 (>60); GLUCOSE, FASTING 69 MG/DL (70-100); POTASSIUM SERUM 3.6 MEQ/L (3.5-5.1); SODIUM LEVEL 142 MEQ/L (136-145)
[2020-08-11] MEDS: CYANOCOBALAMIN 500 MCG TAB PO SCH (10:15)
[2020-08-11] MEDS: IBUPROFEN 600MG TAB PO SCH ×4 (10:15→20:09)
[2020-08-11] MEDS: PANTOPRAZOLE 40MG TAB (PROTONIX) PO SCH (10:15)
[2020-08-11] MEDS: VITAMIN D 1,000 INTERNATIONAL UNITS TABLET PO SCH (10:15)
--- NOTE | 2020-08-11 10:15 | CR ---
CONSULTATION DATE: 08/11/2020 REFERRING PHYSICIAN: RADHA CAMPA DO CONSULTING PHYSICIAN: TUNG DOZIER MD REASON FOR CONSULTATION: Tachycardia/chest pain. HISTORY OF PRESENT ILLNESS: Ms. Valdez is a 30-year-old female with a past medical history only significant for asthma diagnosed in childhood who presented to the [facility] Emergency Department originally with chest tightness and shortness of breath. The patient states that approximately three weeks ago she had developed some chest pain as well as shortness of breath. At the time, she had thought she was having an asthma exacerbation and was using her inhaler and her nebulizer machine. She stated that this continued to worsen over that week and then she presented to the [facility] at which point she was given oral steroids with Prednisone as well as instructed to continue to use her nebulizer and inhaler. The patient states that over that week she did continue to worsen and then she presented to the [facility] Emergency Department on July 29 with symptoms of worsening chest pain and shortness of breath. At the time, her laboratory workup was otherwise negative. Imaging including CT angiography was negative for any pulmonary embolism. Patient was discharged from [facility] and presumed to be having another asthma attack. Over the following week, the patient continued to have symptoms that worsened. She states that she was having more chest tightness and sharp pains in her chest that radiated to her shoulders. The patient stated this was so severe that she had to return to the Emergency Department on the 06 of August. On the 06 of August she once again received another CTA which was negative for any acute findings. Of interest, is the patient's heart rate was rather tachycardic, and was noted to be upwards of 150 to 180 beats per minute. The patient was admitted to the Hospitalist service for evaluation and management. Since admission, the patient has continued to have chest pain. Her workup has otherwise been negative. She was started on Ibuprofen and Colchicine for presumed pericarditis even though despite having negative inflammatory markers. The patient states that once starting Colchicine as well as Ibuprofen her chest pain did improve somewhat. The patient has been noted to be somewhat tachycardic regardless. She does become more tachycardic with ambulation. She has been started on metoprolol 25 mg b.i.d. This morning, on our evaluation, the patient states that she feels like she is improving although she does state that she still has some tightness in her chest although this is nothing compared to what she was previously. She does note that she can feel sometimes that her heart is racing especially when she gets up to walk to the bathroom. Otherwise, she denies any shortness of breath currently or significant chest pain. Of note, the patient states that she was diagnosed with asthma back in childhood. She states that she only uses an Albuterol inhaler and nebulizer when she has an exacerbation. She states that she does use her inhaler somewhat frequently throughout the week. She does not currently follow with a monogram technician and just follows up with [facility]. She does state that she has had workup for her asthma in the past, however unclear if she receives a full spirometry or not. The patient did state that when this started approximately three weeks that this felt different than her asthma attacks as usually when she has asthma attacks she gets wheezy. She states she has not noticed any wheezes since the start of it approximately three weeks ago. Cardiology was consulted for further evaluation and management of the patient's tachycardia as well as possible pericarditis. PAST MEDICAL HISTORY: 1. Asthma diagnosed in childhood. PAST SURGICAL HISTORY: 1. [place] teeth removal. SOCIAL HISTORY: The patient is and lives at home with her . She had recently moved to [place] from [place]. 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 The patient denies any history of recent travel and has never left the country. She denies any tobacco use. She denies any alcohol use. She denies any IV or illicit drug use. FAMILY HISTORY: Patient denies any family history of autoimmune diseases. She denies any family history of lupus or sickle cell disease. REVIEW OF SYSTEMS: CONSTITUTIONAL: Patient denies fevers, chills, unintentional weight loss or weight gain. She denies night sweats. HEENT: The patient denies any headaches. She denies any sore throat. She denies any difficulty swallowing. CARDIOVASCULAR: Patient admits to chest pain and tightness. She states that it also feels like a pressure in her chest. RESPIRATORY: Patient denies current shortness of breath but states that she does feel short of breath when the chest pain comes on. She denies any coughing or sputum production. She denies any recent URIs. GASTROINTESTINAL: The patient denies any abdominal pain, nausea, vomiting, diarrhea or constipation. GENITOURINARY: Patient denies any increased frequency or dysuria. She denies any vaginal discharge. EXTREMITIES: The patient denies any lower extremity swelling. She denies any pain in her calves. NEUROLOGIC: Patient denied any decrease in sensation. She denies any changes in her gait. She denies any changes in her speech. INTEGUMENTARY: The patient denied any rashes or lesions. HEMATOLOGIC/LYMPHATIC: Patient denies any easy bruising or bleeding. She denies any history of DVT or pulmonary embolism. ENDOCRINE: Patient denies any heat intolerance or cold intolerance. She denies any history of diabetes. She denies any history of hypothyroidism or hyperthyroidism. INPATIENT MEDICATIONS: 1. Ibuprofen 600 mg q.i.d. p.o. 2. Tylenol 650 mg every 6 hours p.r.n. 3. Protonix 40 mg daily. 4. Atarax 12.5 mg every 6 hours p.r.n. 5. Colchicine 0.6 mg b.i.d. 6. Nitrostat 0.4 mg every 5 minutes p.r.n. 7. Flonase daily. 8. Vitamin B12 500 mcg daily. 9. Vitamin D 1000 units daily. 10.Xopenex q. 6 hours p.r.n. nebulizer. PHYSICAL EXAMINATION: VITAL SIGNS: Temperature 98.1, pulse is 97, respiratory rate 16, blood pressure 119/67, pulse oximetry 100% on room air. GENERAL: The patient is awake, alert and oriented. She does not appear in any acute distress. She is lying comfortably in bed. HEENT: Atraumatic, normocephalic. Eyes are nonicteric. Trachea is midline. Mucous membranes are pink and moist. NECK: There is no cervical or supraclavicular lymphadenopathy. CARDIOVASCULAR: There is a regular rhythm. There is a regular rate. There are no clicks, rubs or murmurs auscultated. PULMONARY: Clear vesicular breath sounds bilaterally. Good respiratory effort. No wheezes, rhonchi or rales. ABDOMEN: Soft, nondistended and nontender. Normoactive bowel sounds throughout. EXTREMITIES: No edema of bilateral lower extremities. Full and equal pulses of bilateral upper and lower extremities. NEUROLOGIC: No focal neurological deficits. PSYCHIATRIC: Mood and affect appear appropriate. LABORATORY DATA: Hematology: White blood cells 9.0, hemoglobin 11.3, hematocrit 34.5, platelet count 205,000. Chemistries: Sodium 142, potassium 3.6, chloride 111, CO2 23, BUN 5, creatinine 0.85. Fasting glucose 69. Calcium 8.3. CRP from 08/09 is less than 0.3. ESR 12. GERARDO screen pending. Sickle cell screen negative. Chest x-ray from 08/05 demonstrating no acute findings, essentially normal chest x-ray. Angiography from 08/05 was negative for any pulmonary emboli. No significant findings. No evidence of pericardial effusion. No pleural effusion. An echocardiogram did not demonstrate any significant pericardial effusion, otherwise essentially normal. ASSESSMENT AND PLAN: Ms. Valdez is a 30-year-old female with a past medical history significant for asthma who presented to [facility] Emergency Department originally with chest pain, shortness of breath which has been going on for around three weeks. She was found to be tachycardic with heart rate around 150 to 180 although in sinus rhythm. She was admitted for further evaluation and thought to have presumed pericarditis. Cardiology was consulted for further evaluation and management. 1. Chest pain. Patient presenting with chest pain. She describes it as sometimes sharp, it sometimes feels like a pressure and a tightness. It could be a pericarditis. The patient's inflammatory markers have all been negative. Her CRP was not elevated. ESR was not elevated and her D-Dimer was not elevated. There is no clear-cut objective evidence to suggest pericarditis. Her echocardiogram was otherwise negative. There are no physical exam findings such as friction rub or anything to demonstrate pericarditis. Additionally, the patient does not note any significant change in her pain with positioning. However, she has been started on steroids three weeks ago for presumed asthma. She has been on steroids for approximately a month. However, her pain had worsened while on steroids. At this time, she had been started on Colchicine as well as Ibuprofen. She has noticed some improvement in her pain, therefore I recommend continuing. It is likely that if it is pericarditis it could take anywhere from three to six weeks to fully resolve. Recommend continuing her current regimen with the Colchicine and Ibuprofen. Once her pain is controlled, can consider tapering the Ibuprofen and Colchicine off. She is on Protonix for GI prophylaxis. Recommend discontinuing and tapering off of steroids. 2. Sinus tachycardia. The patient has sinus tachycardia. She has had several EKGs all demonstrating sinus tachycardia. She does have some nonspecific ST changes. Does not appear to be related to pericarditis, likely early repolarization. She states that in the past she actually has had symptoms of her feeling of her heart racing before this illness. It is possible the patient may have some form of POTS syndrome. She has been started on metoprolol inpatient, however we have discontinued this as she does have a significant history of asthma. We will start Cardizem long-acting 120 mg daily for now. 3. Asthma. Patient has a presumed history of asthma. She states that she has an Albuterol inhaler and a nebulizer. From what she is stating, she uses her Albuterol inhaler fairly frequently throughout the week for these presumed episodes of wheezing even before this hospitalization. She states that she has received spirometry before but although she is unsure of this when she was a child. Would recommend following up on this as if she is truly having asthma and requiring Albuterol she is likely not controlled and she may need maintenance medication such as inhaled steroid. Also, it seems like she has been getting oral prednisone as an outpatient quite frequently. If she was on an oral inhaled steroid, this may prevent her from receiving so much oral steroid. Addendum MD Bolivar: I have seen and examined the patient with . Briefly 30yo AA female presenting with atypical chest discomfort and episodes of sinus tachycardia with ambulation or at least in upright position. EKG demonstrates early repolarization, ECHO is normal, inflammatory markers are low (but has been on steroids). I doubt that she has pericarditis, etiology of chest pain is unclear. I suspect that episodes of tachycardia are due to POTS. B/o h/o asthma recommend to use cardizem as rate controlling agent (hypotension has not been a problem). [facility]
[2020-08-11] MEDS: COLCHICINE 0.6 MG TABLET PO SCH ×2 (10:16→20:09)
[2020-08-11] MEDS: FLUTICASONE PROP 0.05% NASAL SPRAY 16 GM (FLONASE) SCH (10:16)
--- NOTE | 2020-08-11 11:26 | IPNPDOC ---
Subjective Date Seen The patient was seen on 08/11/20. Subjective Chief Complaint/HPI Ms. Valdez is a 30 year old female with asthma who presents with atypical chest pain and dyspnea and found to have SVT and pericarditis. This morning, she still has chest pain and dyspnea. Later in the morning, she was getting out of the bed to commode and her heart rate was in the 140s. Objective Physical Examination General Exam: Positive: Alert, Cooperative Eye Exam: Positive: EOMI; Negative: Sclera icteric ENT Exam: Positive: Atraumatic Neck Exam: Positive: Supple Chest Exam: Positive: Clear to auscultation; Negative: Rales, Rhonchi, Wheezing Heart Exam: Positive: Rate Normal, Regular Rhythm Abdomen Exam: Positive: Normal bowel sounds, Soft; Negative: Tenderness Extremity Exam: Negative: Edema Psych Exam: Positive: Mental status NL, Anxiety Assessment /Plan Assessment Ms. Valdez is a 30 year old female with asthma who presents with atypical chest pain and dyspnea and found to have SVT and pericarditis. Echocardiogram official report pending. Cardiology consulted, recommendations appreciated. Will need at least 3 months of colchicine. Will continue scheduled Ibuprofen until symptoms are well controlled. Then start taper over 1 to 2 weeks. She will need to avoid extraneous activity. Otherwise, she continues to have tachycardia with activity which goes into the 140s to 180s. Cardiology discontinue Lopressor and started Cardizem today. Plan/VTE VTE Prophylaxis Ordered?: Yes Plan 1. Pericarditis -No extraneous activity -Colchicine BID -Scheduled ibuprofen -Cardiology consulted, recommendations appreciated 2. Sinus tachy/SVT/POTS -Heart rate still increases to 140s to 180s with activity -Symptomatic, has chest tightness, dyspnea, and lightheadedness -Cardiology following, recommendations appreciated -Cardiology switched metoprolol for Cardizem 3. Asthma -Lungs are clear, no wheezing, SpO2 in room was 100% -She has respiratory alkalosis with low pCO2, from rapid breathing 4. DVT -Lovenox Disposition: Pending ability to ambulate without symptoms from sinus tachycardia in the 140s to 180s VS, I&O, 24H, Fishbone Vital Signs/I&O Vital Signs Date Time Temp Pulse Resp B/P (MAP) Pulse Ox O2 Delivery O2 Flow Rate FiO2 08/11/20 10:16 93 131/87 08/11/20 10:00 98.3 18 99 Room Air 08/07/20 20:00 2.0 I&O- Last 24 Hours up to 6 AM 08/11/20 06:00 Intake Total 1370 ml Output Total 600 ml Balance 770 ml Laboratory Data 24H LABS Laboratory Tests 2 08/11/20 06:08: Nucleated Red Blood Cells % (auto) 0.0, Anion Gap 8, Glomerular Filtration Rate > 60.0, Calcium Level 8.3L CBC/BMP Laboratory Tests 08/11/20 06:08 RADHA CAMPA DO Aug 11, 2020 11:26
[2020-08-11] MEDS: LORazepam 2 MG/ML VIAL IV PRN (11:36)
[2020-08-12] VITALS (7 sets, daily range): BP systolic 111–127; BP diastolic 75–88
[2020-08-12 07:27] LABS: HEMATOCRIT 37.9 % (36.0-47.0); HEMOGLOBIN 12.7 g/dl (12.0-15.5); MEAN CORPUSCULAR HEMOGLOBIN 31.1 pg (27.0-33.0); MEAN CORPUSCULAR HGB CONC 33.5 g/dl (32.0-36.5); MEAN CORPUSCULAR VOLUME 92.9 fl (80.0-96.0); PLATELET COUNT, AUTOMATED 225 10^3/uL (150-450); RED BLOOD COUNT 4.08 10^6/uL (4.00-5.40); WHITE BLOOD COUNT 7.1 10^3/uL (4.0-10.0)
[2020-08-12 07:48] LABS: BLOOD UREA NITROGEN 7 MG/DL (7-18); CALCIUM LEVEL 8.8 MG/DL (8.5-10.1); CARBON DIOXIDE LEVEL 21 MEQ/L (21-32); CHLORIDE LEVEL 110 MEQ/L (98-107); CREATININE FOR GFR 0.88 MG/DL (0.55-1.30); GLOMERULAR FILTRATION RATE > 60.0 (>60); GLUCOSE, FASTING 70 MG/DL (70-100); SODIUM LEVEL 140 MEQ/L (136-145)
--- NOTE | 2020-08-12 10:01 | IPN ---
PROGRESS NOTE DATE: 08/12/2020 SUBJECTIVE: Ms. Valdez was seen and examined this morning. It appears overnight she has continued to have episodes of inappropriate sinus tachycardia. She states that it typically happens when she is moving or getting up to use the bathroom; she becomes quite tachycardic as she states that she feels these as palpitations. The patient stated yesterday she felt like she was going to pass out. She told the nursing staff. As a result of this, she has been placed on bedrest. Additionally, she does still complain of some chest discomfort. She describes it more of a tightness in her chest. She states that it has significantly improved since her presentation originally on the . However, it is still somewhat bothersome to her. She was changed from metoprolol to Cardizem yesterday. She states that she does not have any shortness of breath or wheezing. Otherwise, there are no new complaints. OBJECTIVE: Vital signs: Temperature 98.0, pulse 105, respiratory rate 18, blood pressure 122/0, pulse oximetry 96. General: The patient is awake, alert, oriented. She does not appear in any acute distress. She is lying in bed comfortably. HEENT: Atraumatic, normocephalic. Eyes nonicteric. Trachea is midline. Mucous membranes are pink and moist. Cardiovascular: There is a normal S1, S2; a tachycardiac rate with a regular rhythm. No clicks, rubs, or murmurs are ausculted. There is no jugular venous distension (JVD). Pulmonary: There is clear vesicular breath sounds bilaterally. Good respiratory effort. No wheezes, rhonchi, or rales. Symmetric chest expansion. Abdominal: Soft, nondistended, nontender. Normoactive bowel sounds throughout. Extremities: No edema. Full and equal pulses in bilateral upper and lower extremities. Neurologic: No focal neurological deficits. Psychiatric: Mood and affect appear appropriate for situation. LABORATORY DATA: White blood cells 7.1, hemoglobin 12.7, hematocrit 37.9, platelet count 225. Chemistry: Sodium 140, potassium 4.0, chloride 110, CO2 of 21, BUN 7, creatinine 0.88, fasting glucose 70, calcium 8.8. ASSESSMENT AND PLAN: Ms. Valdez is a 30-year-old female with a past medical history significant for asthma who presented to [facility] Emergency Department originally with chest pain and shortness of breath which had been going on for approximately three weeks. She was found to be tachycardic with a heart rate around 150-180 in sinus rhythm. She was admitted for further evaluation and thought to have presumed pericarditis. A cardiology consult for evaluation and management of her tachycardia. 1. Chest pain. The patient originally presented with a complaint of chest pain and tightness. She described it as sharp as a pressure feeling and sometimes is tight. She is currently being treated for presumed pericarditis; however, once again as stated previously though the patient's inflammatory markers have all been negative. Additionally, her symptomatology is not exactly consistent with a pericarditis. Her pain is not necessarily positional. Her echocardiogram was negative. Additionally EKGs did not show any findings consistent or suggestive of pericarditis. Additionally, she had been on steroids for approximately 3-4 weeks before presenting and had not noticed any difference and, in fact, her pain had worsened while on steroids. However, she had been started on colchicine and ibuprofen. She states that she has noticed improvement while on both of those medications. Therefore, we can recommend continuing these medications. If it truly is pericarditis, it could take an additional 3-6 weeks to fully resolve while on medical therapy. 2. Inappropriate sinus tachycardia. Of interest though, the patient does have an inappropriate sinus tachycardia. Heart rates are ranging from low 100s to upwards of 170s to 180s. During these episodes, she does become symptomatic. She states that she gets lightheaded. EKG and telemetry are all demonstrating a sinus tachycardia. There are some nonspecific ST changes on EKGs; however, these appear to be more an early repolarization. She had indicated that she has had some dizzy episodes previously before this illness even occurred, which could be suggestive of a postural orthostatic tachycardia syndrome (POTS). If this is the case, this could explain her inappropriate sinus tachycardia. She was started on metoprolol [inpatient] which did help control her tachycardia; however, given her asthma, this has been changed to Cardizem. Today, she continues to be tachycardic. We will increase her Cardizem from 120 to 240 mg daily for now. Additionally, we will add orthostatic vital signs twice a day to see if she is orthostatic. We could consider adding ivabradine to help with her inappropriate sinus tachycardia; however, this is currently not a medication that is kept in our hospital. However, can consider starting this medication in outpatient follow-up. 3. Anxiety. The patient does have some degree of anxiety. I believe that this is possibly playing a role in worsening her tachycardia. She does admit to feeling quite anxious when she starts to feel her heart rate go up and this is likely contributing to her tachycardia due to adrenergic stimulation. She is currently on Atarax; however, she is on a very small dose at 12.5 mg every six hours. Would recommend increasing this potentially to even 50 mg as needed for anxiety attacks. Additionally, she has been started on Ativan 0.5 mg every 12 hours p.r.n. This is being managed by the primary team 4. Asthma. The patient has a history of asthma. She has stated previously that she uses her albuterol inhaler quite frequently throughout the week. She is not on any maintenance medications. She is currently not wheezing. Would recommend that she follow up outpatient for reevaluation of her asthma and characterization. She may need to be placed on a maintenance medication. My faculty preceptor for this patient encounter was physically present during the encounter and was fully available. All aspects of the patient interview, examination, medical decision making process, and medical care plan development were reviewed and approved by the faculty preceptor. The faculty preceptor is aware and concurs with the plan as stated in the body of this note and will attest to such by his/her co-signature. Addendum MD Bolivar: I have seen and examined the patient with . I agree with his note. MYRNA
[2020-08-12] MEDS: COLCHICINE 0.6 MG TABLET PO SCH ×2 (10:02→20:32)
[2020-08-12] MEDS: IBUPROFEN 600MG TAB PO SCH ×4 (10:03→20:32)
[2020-08-12] MEDS: PANTOPRAZOLE 40MG TAB (PROTONIX) PO SCH (10:03)
[2020-08-12] MEDS: CYANOCOBALAMIN 500 MCG TAB PO SCH (10:03)
[2020-08-12] MEDS: VITAMIN D 1,000 INTERNATIONAL UNITS TABLET PO SCH (10:03)
[2020-08-12] MEDS: FLUTICASONE PROP 0.05% NASAL SPRAY 16 GM (FLONASE) SCH (10:04)
[2020-08-12] MEDS: hydrOXYzine 25 MG TAB PO PRN (10:50)
[2020-08-12] MEDS ORDERED: LORazepam 2 MG/ML VIAL As Ordered ONE (11:13)
[2020-08-12] MEDS: LORazepam 2 MG/ML VIAL IV PRN (11:18)
[2020-08-12 14:09] LABS: ANTINUCLEAR ANTIBODIES DIRECT Negative (Negative)
[2020-08-12] MEDS ORDERED: SERTRALINE HCL 25 MG TABLET PO ONE (16:15)
--- NOTE | 2020-08-12 16:28 | IPNPDOC ---
Text Note Date of Service The patient was seen on 08/12/20. NOTE Subjective: Patient stated that she is anxious and feels some palpitations. No fever overnight. No any acute events Objective: GENERAL APPEARANCE: NAD HEENT: no scleral icterus, no JVD, EOMI CARDIOVASCULAR: Tachycardic at rate 125 to 130 LUNGS: CTA ABDOMEN: soft & not tender w palpitation MUSCULOSKELETAL: no cyanosis, no swelling INTEGUMENT: no generalized pallor NEUROLOGICAL: cranial nerve function from 2-12 intact intact, follows commands, speech not dysarthric Assessment and plan Patient's 30 years old female presented hospital with midsternal chest pain. Patient was found to have SVT and acute pericarditis Acute pericarditis Cardiology recommended to continue colchicine and ibuprofen We'll continue treatment for an additional 3-6 weeks Sinus tachycardia There is concern for POTS Cardiology team recommended increasing her dose of diltiazem to 240 mg daily for now We will check orthostatic vital signs stable today Generalized anxiety disorder Continue Atarax, Ativan PRN when necessary I started sertraline 25 mg daily Asthma Not in acute exacerbation Patient doesn't have any wheezes Follow-up with director of revenue cycle management in the outpatient settings VS,Fern, I+O VS, Fern, I+O Laboratory Tests 08/12/20 06:59 Vital Signs Date Time Temp Pulse Resp B/P (MAP) Pulse Ox O2 Delivery O2 Flow Rate FiO2 08/12/20 14:00 98.2 102 18 111/77 (88) 98 08/11/20 14:00 Room Air 08/07/20 20:00 2.0 I&O- Last 24 Hours up to 6 AM 08/12/20 06:00 Intake Total 1670 ml Output Total 1150 ml Balance 520 ml SHELLY PATTERSON DO Aug 12, 2020 16:28
[2020-08-13 02:00] VITALS: BP 117/78
[2020-08-13 06:00] VITALS: BP 113/76
[2020-08-13 06:45] LABS: HEMATOCRIT 36.7 % (36.0-47.0); HEMOGLOBIN 12.1 g/dl (12.0-15.5); MEAN CORPUSCULAR HEMOGLOBIN 30.2 pg (27.0-33.0); MEAN CORPUSCULAR VOLUME 91.5 fl (80.0-96.0); PLATELET COUNT, AUTOMATED 231 10^3/uL (150-450); RED BLOOD COUNT 4.01 10^6/uL (4.00-5.40)
[2020-08-13 07:00] LABS: BLOOD UREA NITROGEN 9 MG/DL (7-18); CALCIUM LEVEL 8.8 MG/DL (8.5-10.1); CARBON DIOXIDE LEVEL 20 MEQ/L (21-32); CHLORIDE LEVEL 108 MEQ/L (98-107); CREATININE FOR GFR 0.85 MG/DL (0.55-1.30); GLOMERULAR FILTRATION RATE > 60.0 (>60); GLUCOSE, FASTING 82 MG/DL (70-100); MAGNESIUM LEVEL 1.8 MG/DL (1.8-2.4); POTASSIUM SERUM 3.5 MEQ/L (3.5-5.1); SODIUM LEVEL 138 MEQ/L (136-145)
[2020-08-13] MEDS ORDERED: POTASSIUM CHLORIDE 10 MEQ SR TABLET PO ONE (09:00)
[2020-08-13] MEDS: SERTRALINE HCL 25 MG TABLET PO SCH (09:00)
[2020-08-13] MEDS: PANTOPRAZOLE 40MG TAB (PROTONIX) PO SCH (09:17)
[2020-08-13] MEDS: CYANOCOBALAMIN 500 MCG TAB PO SCH (09:17)
[2020-08-13] MEDS: IBUPROFEN 600MG TAB PO SCH ×4 (09:17→21:45)
[2020-08-13] MEDS: VITAMIN D 1,000 INTERNATIONAL UNITS TABLET PO SCH (09:17)
[2020-08-13] MEDS: COLCHICINE 0.6 MG TABLET PO SCH ×2 (09:17→21:46)
[2020-08-13] MEDS: FLUTICASONE PROP 0.05% NASAL SPRAY 16 GM (FLONASE) SCH (09:19)
[2020-08-13 10:00] VITALS: BP 113/78
--- NOTE | 2020-08-13 10:53 | IPN ---
PROGRESS NOTE DATE: 08/13/2020 SUBJECTIVE: Ms. Valdez was seen and examined this morning. There have been no adverse events reported overnight. On telemetry, she has remained fairly tachycardic although improved from her admission. The patient herself states that she feels better in regards to her chest discomfort. She does state that she still has some anxiety. She was started on sertraline by the primary team yesterday. She states this made her somewhat nauseous. Overall, the patient states that she is feeling better and has no new complaints today. OBJECTIVE: VITAL SIGNS: Temperature 98.4, pulse 111, respiratory rate 18, blood pressure 113/76, pulse oximetry 98% on room air. GENERAL: The patient is awake, alert, and oriented. She does not appear in acute distress. She is lying in bed comfortably. She is conversant. HEENT: Atraumatic, normocephalic. Eyes are nonicteric. Trachea is midline. Mucous membranes are pink and moist. NECK: There is no JVD. CARDIAC: Normal S1, S2. There is a slightly tachycardic rate with a regular rhythm. No clicks, rubs, or murmurs are auscultated. PULMONARY: There are clear vesicular breath sounds bilaterally with good respiratory effort. No wheezes, rhonchi, or rales. ABDOMEN: Soft, nondistended, and nontender. Normoactive bowel sounds throughout. EXTREMITIES: No edema in bilateral upper or lower extremities. Full and equal pulses bilateral upper and lower extremities. NEUROLOGIC: No focal neurological deficits. PSYCHIATRIC: Mood and affect appear appropriate. LABORATORY DATA: Hematology: White blood cell 6.0, hemoglobin 12.1, hematocrit 36.7, platelet count 231,000. Chemistries: Sodium 138, potassium 3.5, chloride 108, CO2 of 20, BUN 9, creatinine 0.85, fasting glucose 82, calcium 8.8, magnesium 1.8. INPATIENT CARDIAC MEDICATIONS: 1. Cardizem 240 mg daily p.o. 2. Ibuprofen 600 mg q.i.d. p.o. 3. Cholchicine 0.6 mg b.i.d. p.o. 4. Nitrostat 0.4 mg q. 5 minutes p.r.n. for chest pain. ASSESSMENT AND PLAN: Ms. Valdez is a 30-year-old female with a past medical history significant for asthma who presented to the [facility] Emergency Department originally with chest pain and shortness of breath, which had been going on for approximately three weeks. She was found to be tachycardic with a heart rate around 150 to 180, but in sinus rhythm. She was admitted for further evaluation and management for presumed pericarditis. Cardiology was consulted for evaluation and management of her tachycardia. 1. Chest pain/discomfort. The patient was originally admitted with a complaint of chest pain and tightness. She described it as sharp and sometimes a pressure feeling, as well as tightness in her chest. She was treated originally three weeks prior to her admission for suspected asthma exacerbation. However, her symptoms had worsened on admission. She had been receiving steroids for approximately those three weeks. When she was admitted, she was treated for presumed pericarditis; however, there was no objective evidence to clearly suggest a pericarditis. Inflammatory markers were negative. Her symptomatology was not exactly consistent with a pericarditis, as well as there were no significant EKG changes. However, the patient had been placed on ibuprofen and cholchicine. She has noticed a difference and improvement in her chest pain and discomfort. Therefore, would recommend continuing her ibuprofen and cholchicine until her chest pain resolves. The patient was made aware that if this truly is pericarditis, it could take upwards of six weeks to fully resolve. Overall though, the patient states she is feeling as if her chest pain is improving. 2. Inappropriate sinus tachycardia. The patient does have inappropriate sinus tachycardia. It appears that this is most likely secondary to a postural orthostatic tachycardia (POTS) syndrome. She had been started on metoprolol originally; however, given her multiple episodes of asthma exacerbation, this was discontinued and we had placed her on Cardizem. Yesterday, her Cardizem dose was increased due to persistent tachycardia. This morning, her heart rate is under somewhat better control. She still remains tachycardia, although this is expected in someone with POTS. The patient was informed that given POTS, it is likely that she will have times when her heart rate does get fast. There is also a chance that certain illnesses may trigger this such as viral infections or in her case a possible pericarditis. She did have orthostatic vital signs taken yesterday. She is not orthostatic. She has improved with the Cardizem, however, and would recommend continuing this. We have considered adding Ivabradine to help with inappropriate sinus tachycardia; however, this medication is not currently available at [facility]. Therefore on discharge, the patient can follow-up with cardiology and this can be prescribed to see if this would help at all with her sinus tachycardia. Overall from a cardiology standpoint, the patient can be discharged to home. She is to continue her Cardizem 240 mg daily and follow-up with cardiology in approximately two to three weeks. 3. Anxiety. The patient does have anxiety. She was started on sertraline by her primary team. They are currently managing this and likely plays some role in her tachycardia and sensation. 4. Asthma. The patient has a history of asthma. She states she does use her Albuterol inhaler quite frequently. She is not on any maintenance medication. Would recommend she follow-up outpatient with her primary care for further evaluation of her asthma. RECOMMENDATIONS: From a cardiology standpoint, the patient can be discharged home. She is to continue her Cardizem 240 mg daily. She is to follow-up with cardiology in two to three weeks. Given her insurance, she will likely need referral from her primary care physician on before she can be seen by cardiology. Addendum MD Bolivar: Patient was seen and examined with . I agree with his note. MYRNA
[2020-08-13] MEDS ORDERED: IBUP-1022 PO (11:21)
[2020-08-13] MEDS ORDERED: COLC0.6T47 PO (11:21)
[2020-08-13] MEDS ORDERED: PANT40TA29 PO (11:21)
[2020-08-13] MEDS ORDERED: NITR4TASL SL (11:21)
[2020-08-13] MEDS ORDERED: HYDR-3363 PO (11:21)
[2020-08-13] MEDS ORDERED: CARD120C3 PO (11:21)
[2020-08-13] MEDS: ONDANSETRON 4MG/2ML VIAL IV PRN (12:02)
[2020-08-13 14:00] VITALS: BP 112/79
--- NOTE | 2020-08-13 14:14 | IPNPDOC ---
Text Note Date of Service The patient was seen on 08/13/20. NOTE Subjective: Patient complains of multiple episodes of diarrhea with nausea. No fever or chills Objective: GENERAL APPEARANCE: NAD HEENT: no scleral icterus, no JVD, EOMI CARDIOVASCULAR: Tachycardic at rate 105 to 110 LUNGS: CTA ABDOMEN: soft & not tender w palpitation MUSCULOSKELETAL: no cyanosis, no swelling INTEGUMENT: no generalized pallor NEUROLOGICAL: cranial nerve function from 2-12 intact intact, follows commands, speech not dysarthric Assessment and plan Patient's 30 years old female presented hospital with midsternal chest pain. Patient was found to have SVT and acute pericarditis Acute pericarditis Cardiology recommended to continue colchicine and ibuprofen We'll continue treatment for an additional 3-6 weeks Sinus tachycardia There is concern for POTS Cardiology team recommended increasing her dose of diltiazem to 240 mg daily for now Generalized anxiety disorder Continue Atarax, Ativan PRN when necessary DC sertraline 25 mg daily due to nausea and diarrhea Diarrhea/nausea Most likely secondary sertraline as a well-known side effect Imodium/Zofran when necessary Asthma Not in acute exacerbation Patient doesn't have any wheezes Follow-up with social media marketing analyst in the outpatient settings VS,Fern, I+O VSFern, I+O Laboratory Tests 08/13/20 06:21 Vital Signs Date Time Temp Pulse Resp B/P (MAP) Pulse Ox O2 Delivery O2 Flow Rate FiO2 08/13/20 10:00 97.4 92 18 113/78 (90) 99 Room Air 08/07/20 20:00 2.0 I&O- Last 24 Hours up to 6 AM 08/13/20 06:00 Intake Total 1430 ml Output Total 0 ml Balance 1430 ml SHELLY PATTERSON DO Aug 13, 2020 14:14
--- NOTE | 2020-08-13 14:28 | ECGEPIP ---
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
[2020-08-13] MEDS: hydrOXYzine 25 MG TAB PO PRN ×2 (16:17→21:44)
[2020-08-13 18:00] VITALS: BP 110/80
[2020-08-13] MEDS: LOPERAMIDE 2 MG CAPLET PO PRN (21:45)
[2020-08-13 22:00] VITALS: BP 113/80
[2020-08-13] MEDS: LORazepam 2 MG/ML VIAL IV PRN (22:02)
[2020-08-14 02:00] VITALS: BP 98/69
[2020-08-14 06:00] VITALS: BP 107/75
[2020-08-14 07:01] LABS: HEMATOCRIT 42.3 % (36.0-47.0); HEMOGLOBIN 13.9 g/dl (12.0-15.5); MEAN CORPUSCULAR HEMOGLOBIN 30.3 pg (27.0-33.0); MEAN CORPUSCULAR HGB CONC 32.9 g/dl (32.0-36.5); MEAN CORPUSCULAR VOLUME 92.2 fl (80.0-96.0); PLATELET COUNT, AUTOMATED 251 10^3/uL (150-450); RED BLOOD COUNT 4.59 10^6/uL (4.00-5.40); WHITE BLOOD COUNT 5.6 10^3/uL (4.0-10.0)
[2020-08-14 07:35] LABS: BLOOD UREA NITROGEN 8 MG/DL (7-18); CALCIUM LEVEL 9.5 MG/DL (8.5-10.1); CARBON DIOXIDE LEVEL 19 MEQ/L (21-32); CHLORIDE LEVEL 107 MEQ/L (98-107); CREATININE FOR GFR 0.99 MG/DL (0.55-1.30); GLOMERULAR FILTRATION RATE > 60.0 (>60); GLUCOSE, FASTING 73 MG/DL (70-100); MAGNESIUM LEVEL 1.9 MG/DL (1.8-2.4); POTASSIUM SERUM 3.9 MEQ/L (3.5-5.1); SODIUM LEVEL 138 MEQ/L (136-145)
[2020-08-14] MEDS: PANTOPRAZOLE 40MG TAB (PROTONIX) PO SCH (08:07)
[2020-08-14] MEDS: COLCHICINE 0.6 MG TABLET PO SCH ×2 (08:07→20:55)
[2020-08-14] MEDS: CYANOCOBALAMIN 500 MCG TAB PO SCH (08:08)
[2020-08-14] MEDS: VITAMIN D 1,000 INTERNATIONAL UNITS TABLET PO SCH (08:08)
[2020-08-14] MEDS: IBUPROFEN 600MG TAB PO SCH ×4 (08:08→20:55)
[2020-08-14] MEDS: SERTRALINE HCL 25 MG TABLET PO SCH (08:10)
[2020-08-14] MEDS: FLUTICASONE PROP 0.05% NASAL SPRAY 16 GM (FLONASE) SCH (08:10)
[2020-08-14 10:00] VITALS: BP 104/71
[2020-08-14 14:00] VITALS: BP 104/70
--- NOTE | 2020-08-14 14:43 | IPNPDOC ---
Text Note Date of Service The patient was seen on 08/14/20. NOTE Subjective: Patient continues to have nausea/vomiting and multiple episodes of diarrhea. Objective: GENERAL APPEARANCE: NAD HEENT: no scleral icterus, no JVD, EOMI CARDIOVASCULAR: Tachycardic at rate 100 -105 LUNGS: CTA ABDOMEN: soft & not tender w palpitation MUSCULOSKELETAL: no cyanosis, no swelling INTEGUMENT: no generalized pallor NEUROLOGICAL: cranial nerve function from 2-12 intact intact, follows commands, speech not dysarthric Assessment and plan Patient's 30 years old female presented hospital with midsternal chest pain. Patient was found to have SVT and acute pericarditis Acute pericarditis Cardiology recommended to continue colchicine and ibuprofen We'll continue treatment for an additional 3-6 weeks Sinus tachycardia There is concern for POTS Cardiology team recommended increasing her dose of diltiazem to 240 mg daily for now Generalized anxiety disorder Continue Atarax, Ativan PRN when necessary DC sertraline 25 mg daily due to nausea and diarrhea Diarrhea/nausea Most likely secondary sertraline as a well-known side effect Had diarrhea for 2 days. I will checks C. difficile Asthma Not in acute exacerbation Patient doesn't have any wheezes Follow-up with sign letterer in the outpatient settings VS,Fern, I+O VSFern, I+O Laboratory Tests 08/14/20 06:33 Vital Signs Date Time Temp Pulse Resp B/P (MAP) Pulse Ox O2 Delivery O2 Flow Rate FiO2 08/14/20 10:00 97.9 106 17 104/71 (82) 97 Room Air I&O- Last 24 Hours up to 6 AM 08/14/20 06:00 Intake Total 2360 ml Balance 2360 ml SHELLY PATTERSON DO Aug 14, 2020 14:43
[2020-08-14 14:46] LABS: CLOSTRIDIUM DIFFICILE PCR NEGATIVE (NEGATIVE)
[2020-08-14] MEDS ORDERED: LOPERAMIDE 2 MG CAPLET PO ONE (17:35)
[2020-08-14 17:43] VITALS: BP 115/82
[2020-08-14] MEDS: ACETAMINOPHEN 650MG ER TAB (TYLENOL ARTHRITIS) PO PRN (18:11)
[2020-08-14] MEDS: LORazepam 2 MG/ML VIAL IV PRN (20:55)
[2020-08-14 22:00] VITALS: BP 121/86
[2020-08-15 02:00] VITALS: BP 126/74
[2020-08-15 06:50] VITALS: BP 119/84
[2020-08-15] MEDS: SERTRALINE HCL 25 MG TABLET PO SCH (09:00)
[2020-08-15 10:00] VITALS: BP 110/60
[2020-08-15] MEDS: ONDANSETRON 4MG/2ML VIAL IV PRN (10:00)
[2020-08-15] MEDS: PANTOPRAZOLE 40MG TAB (PROTONIX) PO SCH (10:01)
[2020-08-15] MEDS: VITAMIN D 1,000 INTERNATIONAL UNITS TABLET PO SCH (10:01)
[2020-08-15] MEDS: CYANOCOBALAMIN 500 MCG TAB PO SCH (10:01)
[2020-08-15] MEDS: COLCHICINE 0.6 MG TABLET PO SCH (10:02)
[2020-08-15] MEDS: IBUPROFEN 600MG TAB PO SCH ×6 (10:02→23:32)
[2020-08-15] MEDS: FLUTICASONE PROP 0.05% NASAL SPRAY 16 GM (FLONASE) SCH (10:02)
[2020-08-15 11:22] LABS: ALBUMIN 4.1 GM/DL (3.2-5.2); ALT/SGPT 58 U/L (12-78); BILIRUBIN,TOTAL 0.5 MG/DL (0.2-1.0); BLOOD UREA NITROGEN 10 MG/DL (7-18); CALCIUM LEVEL 9.8 MG/DL (8.5-10.1); CARBON DIOXIDE LEVEL 17 MEQ/L (21-32); CHLORIDE LEVEL 104 MEQ/L (98-107); CREATININE FOR GFR 1.01 MG/DL (0.55-1.30); GLOMERULAR FILTRATION RATE > 60.0 (>60); GLUCOSE, FASTING 79 MG/DL (70-100); POTASSIUM SERUM 3.7 MEQ/L (3.5-5.1); SODIUM LEVEL 136 MEQ/L (136-145); TOTAL PROTEIN 7.4 GM/DL (6.4-8.2)
[2020-08-15] MEDS: GASTROGRAFIN SOLUTION 30ML PO SCH ×2 (11:59→12:30)
[2020-08-15] MEDS ORDERED: LIDOCAINE 1% MDV 20ML VIAL As Ordered ONE (12:34)
[2020-08-15] MEDS ORDERED: ISOVUE-370 76% 100ML VIAL As Ordered ONE (13:35)
--- NOTE | 2020-08-15 13:46 | REP ---
PROCEDURE NAME: PICC LINE INSERTION W/SITERITE CLINICAL INFORMATION: POOR IV access. COMPARISON: None. PROCEDURE DESCRIPTION: The procedure was performed by VALENTINA Youngblood, under the direct supervision of Dr. Davis. The risks and benefits of the procedure were explained to the patient and an informed consent was obtained both verbally and written. Directly prior to the start of the procedure a formal time-out was completed in the procedure room. The left medial brachial vein was localized using ultrasound guidance. The skin was prepped and draped in sterile fashion. Two mL of 1% lidocaine 10 mg/mL was used as a local anesthetic. Using ultrasound guidance the left medial brachial vein was cannulated, and a 0.018 guidewire was inserted and advanced to the level of SVC using fluoroscopic guidance. The needle was removed and a 5.5 Tanzanian dilator and peel-away sheath was inserted over the guidewire. A 5.5 Tanzanian dual lumen catheter was cut to a length of 43 cm. The dilator was removed and the catheter was inserted over the guidewire with the tip ending at the level of the SVC. The peel-away sheath was removed and the catheter was flushed with heparinized saline as per hospital protocol. The catheter was affixed to the skin and a sterile dressing was applied. The patient tolerated the procedure well and there were no immediate complications. CONCLUSION: PICC line insertion into the left medial brachial vein. 0.1 minutes of fluoroscopy time was utilized for this procedure. Some fluoroscopic images are performed with last image hold technology. These images require no additional radiation. <Electronically signed by Felicia Hodgson > 08/15/20 1341 <Electronically signed by Zach Davis > 08/15/20 1346
--- NOTE | 2020-08-15 14:00 | REP ---
INDICATION: nausea, vomitting. COMPARISON: None TECHNIQUE: Standard helical technique after the intravenous administration of 100 cc Isovue 370 and the administration of oral bowel preparatory contrast. FINDINGS: Lung bases are clear. The liver, gallbladder, spleen, pancreas, adrenal glands, and kidneys are within normal limits. The abdominal aorta and para-aortic regions are within normal limits. There is no free air. There is a 3 cm sized low-density structure in the right hemipelvis adjacent to the uterus seen in conjunction with a small amount of free pelvic fluid. The bowel loops and the mesenteries are within normal limits. The imaged osseous structures are within normal limits. IMPRESSION: Probable spontaneously ruptured right ovarian cyst. The examination is otherwise unremarkable <Electronically signed by Lui Kemp > 08/15/20 [id number]
[2020-08-15] MEDS: SODIUM CHLORIDE 0.9% INJ 10 ML SYR IV PRN (15:06)
--- NOTE | 2020-08-15 15:50 | ECGEPIP ---
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
[2020-08-15] MEDS: LORazepam 1 MG TAB PO PRN (16:03)
--- NOTE | 2020-08-15 17:20 | IPNPDOC ---
Text Note Date of Service The patient was seen on 08/15/20. NOTE Subjective: Patient continues to have nausea/vomiting, diarrhea resolved. Ayla escobedo stated that she had diffuse abdominal pain Objective: GENERAL APPEARANCE: NAD HEENT: no scleral icterus, no JVD, EOMI CARDIOVASCULAR: Tachycardic at rate 100 -105 LUNGS: CTA ABDOMEN: soft & mildly tender w palpitation MUSCULOSKELETAL: no cyanosis, no swelling INTEGUMENT: no generalized pallor NEUROLOGICAL: cranial nerve function from 2-12 intact intact, follows commands, speech not dysarthric Assessment and plan Patient's 30 years old female presented hospital with midsternal chest pain. Patient was found to have SVT and acute pericarditis Acute pericarditis Cardiology recommended to continue colchicine and ibuprofen. I discontinued colchicine due to GI upset symptoms We'll continue treatment for an additional 3-6 weeks Repeated EKG showed ST elevation consistent with acute pericarditis Sinus tachycardia There is concern for POTS Cardiology team recommended increasing her dose of diltiazem to 240 mg daily for now Generalized anxiety disorder Continue Atarax, Ativan PRN when necessary DC sertraline 25 mg daily due to nausea and diarrhea Diarrhea/nausea Diarrhea resolved Most likely secondary sertraline as a well-known side effect. Sertraline was discontinued. I discontinued today colchicine which can be also cause of GI upset symptoms Had diarrhea for 2 days. C. difficile negative Abdominal pain CT abdomen pelvis was done today and showed possible ruptured right ovarian cyst. Rupture of ovarian cyst can be cause of abdominal pain,nausea and vomiting Appreciate/agree with CHIEF CATALYST OPERATOR consult Asthma Not in acute exacerbation Patient doesn't have any wheezes Follow-up with [employer] retailer sales consultant in the outpatient settings VS,Fern, I+O VS, Fern, I+O Laboratory Tests 08/15/20 06:13 Vital Signs Date Time Temp Pulse Resp B/P (MAP) Pulse Ox O2 Delivery O2 Flow Rate FiO2 08/15/20 12:46 98.2 102 18 100 Room Air 08/15/20 10:01 110/60 I&O- Last 24 Hours up to 6 AM 08/15/20 06:00 Intake Total 1200 ml Output Total 500 ml Balance 700 ml SHELLY PATTERSON DO Aug 15, 2020 17:20
[2020-08-15] MEDS: SODIUM CHLORIDE 0.9% INJ 10 ML SYR IV SCH (17:45)
--- NOTE | 2020-08-15 17:53 | CR.PDOC ---
General Date of Consultation: Aug 15, 2020 Referring Provider: Arleen Sood I. Primary Care Physician: RADHA CAMPA DO Attending Physician: RADHA CAMPA DO Consultation REASON FOR CONSULTATION/CHIEF COMPLAINT: OVARIAN CYST INCIDENTAL FINDING ON CT /MRI. HISTORY OF PRESENT ILLNESS: ADMITTED WITH DIAGNOSIS SINUS TACHYCARDIA,R/OUT PERICARDITIS, ASTHMA ALLERGIES: Please see below. HOME MEDICATIONS: Please see below. PAST MEDICAL HISTORY: 1. . 2. . PAST SURGICAL HISTORY: 1. 2. FAMILY HISTORY: Father: Mother: A AND W SEIZURES Siblings: SISTER A AND W Children: Hereditary Diseases: Unexpected deaths due to medical reasons: SOCIAL HISTORY: Marital status and/or living arrangements: [employer] Children: [employer] Employment: [employer] Tobacco use: NO ETOH: NO Illicit drug use: NO IV drug use: NO Other relevant social factors: NO VIOLANCE REVIEW OF SYSTEMS: CONSTITUTIONAL: . HEENT: . CARDIOVASCULAR: . RESPIRATORY: . GENITOURINARY: . REGULAR PERIODS NO CONTROL NO STD PAP UP TODATE MUSCULOSKELETAL: . GASTROINTESTINAL: . SKIN: . NEUROLOGICAL: . PSYCHIATRIC: . ENDOCRINE: . HEMATOLOGIC/LYMPHATIC: . ALLERGIC/IMMUNOLOGIC: . PHYSICAL EXAMINATION: VITAL SIGNS: Please see below. GENERAL APPEARANCE: . HEENT: . RESPIRATORY: . CARDIOVASCULAR: . ABDOMEN: . EXTREMITIES: . NEUROLOGICAL: . PSYCHIATRIC: . LABORATORY DATA: Please see below. ASSESSMENT/PLAN: 1. .REVIEWED CT PHYSIOLOGIC CYST 3 CM RUPTURED SMALL AMOUNT FREE FLUID CUL DE SAC LMP 4 DAYS AGO 2. .NO NEED FOR F/UP Vital Signs/I&O Vital Signs Date Time Temp Pulse Resp B/P (MAP) Pulse Ox O2 Delivery O2 Flow Rate FiO2 08/15/20 12:46 98.2 102 18 100 Room Air 08/15/20 10:01 110/60 I&O- Last 24 Hours up to 6 AM 08/15/20 06:00 Intake Total 1200 ml Output Total 500 ml Balance 700 ml Laboratory Data Labs 24H Laboratory Tests 2 08/15/20 06:13: Anion Gap 15, Glomerular Filtration Rate > 60.0, Calcium Level 9.8, Magnesium Level 2.0, Total Bilirubin 0.5, Aspartate Amino Transf (AST/SGOT) 18, Alanine Aminotransferase (ALT/SGPT) 58, Alkaline Phosphatase 46, Total Protein 7.4, Albumin 4.1, Albumin/Globulin Ratio 1.2 08/15/20 15:12: Troponin I 0.04 CBC/BMP Laboratory Tests 08/15/20 06:13 Allergies Coded Allergies: No Known Allergies (Unverified , 07/29/20) Home Medications Scheduled Albuterol Sulf (Albuterol Sulfate) 2.5 Mg/3 Ml Vial.neb, 2.5 MG INH BID, (Reported) Cholecalciferol (Vitamin D3) (Vitamin D3) 1,000 Unit Tablet, 1,000 UNITS PO DAILY, (Reported) Cyanocobalamin (Vitamin B-12) (Vitamin B-12) 500 Mcg Tablet, 500 MCG PO DAILY, (Reported) Diltiazem Hcl (Cardizem Cd) 120 Mg Cap.er.24h, 240 MG PO DAILY for 30 Days, #60 Fluticasone Propionate (Flonase Allergy Relief) 9.9 Ml Sylva.susp, 2 SPRAYS NA DAILY, (Reported) Garlic (Garlic) 500 Mg Capsule, 500 MG PO DAILY, (Reported) Ibuprofen (Ibuprofen) 600 Mg Tablet, 600 MG PO QID for 28 Days, #112 Pantoprazole Sodium (Pantoprazole Sodium) 40 Mg Tablet.dr, 40 MG PO DAILY for 30 Days, #30 Scheduled PRN Albuterol Sulfate (Proair Hfa) 8.5 Gm Hfa.aer.ad, 2 PUFF INH Q4H PRN for SHORTNESS OF BREATH, (Reported) Hydroxyzine HCl (Hydroxyzine HCl) 25 Mg Tablet, 25 MG PO Q6HP PRN for ANXIETY for 7 Days, #28 Ketorolac Tromethamine (Ketorolac Tromethamine) 10 Mg Tablet, 10 MG PO Q6H PRN for PAIN, (Reported) Nitroglycerin (Nitrostat) 0.4 Mg Tab.subl, 0.4 MG SL Q5MP PRN for CHEST PAIN for 30 Days, #30 Reji Smith MD Aug 15, 2020 17:53
[2020-08-15 18:00] VITALS: BP 99/77
[2020-08-15 19:06] VITALS: BP 110/77
[2020-08-15] MEDS: LOPERAMIDE 2 MG CAPLET PO PRN (19:36)
[2020-08-15 20:44] LABS: HCG, SERUM QUANTITATIVE < 1.0 MIU/ML; TROPONIN I 0.03 NG/ML (< 0.10)
[2020-08-15 22:00] VITALS: BP 102/75
[2020-08-16 02:00] VITALS: BP 100/75
[2020-08-16] MEDS: SODIUM CHLORIDE 0.9% INJ 10 ML SYR IV SCH ×2 (05:26→17:10)
[2020-08-16 06:00] VITALS: BP_SYST 100; BP_SYST 106; BP_DIAS 66; BP_DIAS 73
[2020-08-16 06:18] LABS: MAGNESIUM LEVEL 1.8 MG/DL (1.8-2.4); TROPONIN I 0.03 NG/ML (< 0.10)
[2020-08-16] MEDS: VITAMIN D 1,000 INTERNATIONAL UNITS TABLET PO SCH (09:11)
[2020-08-16] MEDS: IBUPROFEN 600MG TAB PO SCH (09:11)
[2020-08-16] MEDS: PANTOPRAZOLE 40MG TAB (PROTONIX) PO SCH (09:11)
[2020-08-16] MEDS: CYANOCOBALAMIN 500 MCG TAB PO SCH (09:11)
[2020-08-16] MEDS: FLUTICASONE PROP 0.05% NASAL SPRAY 16 GM (FLONASE) SCH (09:14)
[2020-08-16] MEDS ORDERED: METOCLOPRAMIDE INJ 10MG/2ML VIAL (J2765 PER 1) IV PRN (09:40)
[2020-08-16 10:00] VITALS: BP 114/74
[2020-08-16 14:00] VITALS: BP 113/74
--- NOTE | 2020-08-16 15:16 | IPNPDOC ---
Text Note Date of Service The patient was seen on 08/16/20. NOTE Subjective: Patient continues to have nausea/vomiting, diarrhea resolved. Objective: GENERAL APPEARANCE: NAD HEENT: no scleral icterus, no JVD, EOMI CARDIOVASCULAR: Tachycardic at rate 100 -105 LUNGS: CTA ABDOMEN: soft & mildly tender w palpitation MUSCULOSKELETAL: no cyanosis, no swelling INTEGUMENT: no generalized pallor NEUROLOGICAL: cranial nerve function from 2-12 intact intact, follows commands, speech not dysarthric Assessment and plan Patient's 30 years old female presented hospital with midsternal chest pain. Patient was found to have SVT and acute pericarditis Acute pericarditis Cardiology recommended to continue colchicine and ibuprofen. I discontinued colchicine due to GI upset symptoms. Due to continuous nausea I discontinued ibuprofen I will start prednisone 10 mg daily Sinus tachycardia There is concern for POTS Cardiology team recommended increasing her dose of diltiazem to 240 mg daily for now Generalized anxiety disorder Continue Atarax, Ativan PRN when necessary DC sertraline 25 mg daily due to nausea and diarrhea Diarrhea/nausea Diarrhea resolved Most likely secondary sertraline as a well-known side effect. Sertraline was discontinued. I discontinued today colchicine which can be also cause of GI upset symptoms Had diarrhea for 2 days. C. difficile negative Reglan added Abdominal pain CT abdomen pelvis was done today and showed possible ruptured right ovarian cyst. Rupture of ovarian cyst can be cause of abdominal pain,nausea and vomiting CLINICAL STAFF EDUCATOR consulted patient yesterday. No indication for surgical intervention Asthma Not in acute exacerbation Patient doesn't have any wheezes Follow-up with stave planer tender in the outpatient settings VS,Rayshawnbone, I+O VS, Fishbone, I+O Vital Signs Date Time Temp Pulse Resp B/P (MAP) Pulse Ox O2 Delivery O2 Flow Rate FiO2 08/16/20 10:00 98.1 118 17 114/74 (87) 99 Room Air I&O- Last 24 Hours up to 6 AM 08/16/20 06:00 Intake Total 1720 ml Output Total 1125 ml Balance 595 ml SHELLY PATTERSON DO August 16, 2020 15:16
[2020-08-16] MEDS ORDERED: predniSONE 10 MG TAB PO ONE (16:00)
[2020-08-16 18:00] VITALS: BP 132/87
[2020-08-16] MEDS: LORazepam 1 MG TAB PO PRN (18:56)
[2020-08-16 22:00] VITALS: BP 106/76
[2020-08-16] MEDS: LORazepam 2 MG/ML VIAL IV PRN (23:10)
[2020-08-16] MEDS: LOPERAMIDE 2 MG CAPLET PO PRN (23:11)
[2020-08-16] MEDS: NITROGLYCERIN 0.4 MG SUBL TABLET SL PRN (23:12)
[2020-08-17 02:00] VITALS: BP 121/85
[2020-08-17 06:00] VITALS: BP 117/81
[2020-08-17] MEDS: SODIUM CHLORIDE 0.9% INJ 10 ML SYR IV SCH ×2 (06:01→18:48)
[2020-08-17] MEDS: VITAMIN D 1,000 INTERNATIONAL UNITS TABLET PO SCH (09:43)
[2020-08-17] MEDS: PANTOPRAZOLE 40MG TAB (PROTONIX) PO SCH (09:43)
[2020-08-17] MEDS: CYANOCOBALAMIN 500 MCG TAB PO SCH (09:43)
[2020-08-17] MEDS: predniSONE 10 MG TAB PO SCH (09:43)
[2020-08-17] MEDS: FLUTICASONE PROP 0.05% NASAL SPRAY 16 GM (FLONASE) SCH (09:45)
[2020-08-17] MEDS: LOPERAMIDE 2 MG CAPLET PO PRN (09:49)
[2020-08-17 10:00] VITALS: BP 130/90
--- NOTE | 2020-08-17 13:46 | IPNPDOC ---
Text Note Date of Service The patient was seen on 08/17/20. NOTE Subjective: Patient continues to have nausea but states it's improving. Also patient reported 2 liquid bowel movements for past 12 hours Objective: GENERAL APPEARANCE: NAD HEENT: no scleral icterus, no JVD, EOMI CARDIOVASCULAR: Tachycardic at rate 100 -105 LUNGS: CTA ABDOMEN: soft & mildly tender w palpitation MUSCULOSKELETAL: no cyanosis, no swelling INTEGUMENT: no generalized pallor NEUROLOGICAL: cranial nerve function from 2-12 intact intact, follows commands, speech not dysarthric Assessment and plan Patient's 30 years old female presented hospital with midsternal chest pain. Patient was found to have SVT and acute pericarditis Acute pericarditis Cardiology recommended to continue colchicine and ibuprofen. I discontinued colchicine due to GI upset symptoms. I discontinued ibuprofen next day Repeated EKG showed ST elevation consistent with acute pericarditis Continue prednisone 10 mg daily I ordered echo to rule out pericardial effusion Sinus tachycardia There is concern for POTS Cardiology team recommended increasing her dose of diltiazem to 240 mg daily for now. I discontinued diltiazem today due to possible side effect is a nausea and diarrhea. Started metoprolol 50 mg every 6 hours Generalized anxiety disorder Continue Atarax, Ativan PRN when necessary DC sertraline 25 mg daily due to nausea and diarrhea Diarrhea/nausea Possible medication side effects versus viral gastroenteritis C. difficile negative Abdominal pain CT abdomen pelvis was done today and showed possible ruptured right ovarian cyst. Rupture of ovarian cyst can be cause of abdominal pain,nausea and vomiting TACO MAKER consulted patient, not any indication for surgical intervention Asthma Not in acute exacerbation Patient doesn't have any wheezes Follow-up with director of sports performance in the outpatient settings VS,Fishbone, I+O VS, Fishbone, I+O Vital Signs Date Time Temp Pulse Resp B/P (MAP) Pulse Ox O2 Delivery O2 Flow Rate FiO2 08/17/20 10:00 98.7 132 20 130/90 (103) 98 08/16/20 18:00 Room Air I&O- Last 24 Hours up to 6 AM 08/17/20 06:00 Intake Total 1080 ml Output Total 1000 ml Balance 80 ml SHELLY PATTERSON DO August 17, 2020 13:46
[2020-08-17 14:00] VITALS: BP 128/91
[2020-08-17] MEDS: METOPROLOL TART 50 MG TAB PO SCH ×3 (14:22→23:03)
[2020-08-17 22:00] VITALS: BP 110/81
[2020-08-17] MEDS: ACETAMINOPHEN 650MG ER TAB (TYLENOL ARTHRITIS) PO PRN (23:03)
[2020-08-18] MEDS: LORazepam 2 MG/ML VIAL IV PRN ×2 (01:55→18:58)
[2020-08-18] MEDS: SODIUM CHLORIDE 0.9% INJ 10 ML SYR IV PRN ×2 (01:56→19:00)
[2020-08-18 02:00] VITALS: BP 110/84
[2020-08-18] MEDS: METOPROLOL TART 50 MG TAB PO SCH ×3 (05:48→18:17)
[2020-08-18] MEDS: SODIUM CHLORIDE 0.9% INJ 10 ML SYR IV SCH ×2 (05:49→18:16)
[2020-08-18 06:00] VITALS: BP 108/83
[2020-08-18] MEDS: CYANOCOBALAMIN 500 MCG TAB PO SCH (09:59)
[2020-08-18 10:00] VITALS: BP 108/78
[2020-08-18] MEDS: PANTOPRAZOLE 40MG TAB (PROTONIX) PO SCH (10:00)
[2020-08-18] MEDS: predniSONE 10 MG TAB PO SCH (10:00)
[2020-08-18] MEDS: FLUTICASONE PROP 0.05% NASAL SPRAY 16 GM (FLONASE) SCH (10:00)
[2020-08-18 14:00] VITALS: BP 116/79
--- NOTE | 2020-08-18 15:33 | IPNPDOC ---
Text Note Date of Service The patient was seen on 08/18/20. NOTE Subjective: Patient stated that her nausea resolved. She continues to have diarrhea, she reported 3 episodes of liquid stool overnight. Also patient asked me about transfer to [facility]. I explained to her that our supervisor power reactor Dr. Carter did not recommended transfer and he will discuss it with her tonight. Patient continues to have chest tightness. Objective: GENERAL APPEARANCE: NAD HEENT: no scleral icterus, no JVD, EOMI CARDIOVASCULAR: Tachycardic at rate 100 -105 LUNGS: CTA ABDOMEN: soft & mildly tender w palpitation MUSCULOSKELETAL: no cyanosis, no swelling INTEGUMENT: no generalized pallor NEUROLOGICAL: cranial nerve function from 2-12 intact intact, follows commands, speech not dysarthric Assessment and plan Patient's 30 years old female presented hospital with midsternal chest pain. Patient was found to have SVT and acute pericarditis Acute pericarditis Cardiology recommended to continue colchicine and ibuprofen. I discontinued colchicine due to GI upset symptoms. I discontinued ibuprofen next day Repeated EKG showed ST elevation consistent with acute pericarditis Continue prednisone 10 mg daily echo pending Sinus tachycardia There is concern for POTS Cardiology team recommended increasing her dose of diltiazem to 240 mg daily for now. I discontinued diltiazem today due to possible side effect is a nausea and diarrhea. Continue metoprolol 50 mg every 6 hours Generalized anxiety disorder Continue Atarax, Ativan PRN when necessary DC sertraline 25 mg daily due to nausea and diarrhea Diarrhea/nausea Possible medication side effects versus viral gastroenteritis C. difficile negative Abdominal pain CT abdomen pelvis was done today and showed possible ruptured right ovarian cyst. Rupture of ovarian cyst can be cause of abdominal pain,nausea and vomiting SCIENTIFIC RECRUITER consulted patient, not any indication for surgical intervention Asthma Not in acute exacerbation Patient doesn't have any wheezes Follow-up with brush material preparer in the outpatient settings VS,Fishbone, I+O VS, Fishbone, I+O Vital Signs Date Time Temp Pulse Resp B/P (MAP) Pulse Ox O2 Delivery O2 Flow Rate FiO2 08/18/20 14:00 97.4 95 20 116/79 (91) 98 08/16/20 18:00 Room Air I&O- Last 24 Hours up to 6 AM 08/18/20 06:00 Intake Total 2340 ml Output Total 800 ml Balance 1540 ml DROZHZHIN,SHELLY DO August 18, 2020 15:33
[2020-08-18 18:00] VITALS: BP 107/81
[2020-08-18 22:00] VITALS: BP 87/61
[2020-08-19 02:00] VITALS: BP 99/65
[2020-08-19] MEDS: SODIUM CHLORIDE 0.9% INJ 10 ML SYR IV SCH (05:56)
[2020-08-19] MEDS: METOPROLOL TART 50 MG TAB PO SCH ×3 (05:57→12:38)
[2020-08-19 06:00] VITALS: BP 102/78
[2020-08-19 06:18] LABS: BASO % 0.6 % (0.0-1.0); EOS # 0.2 10^3/uL (0.0-0.5); EOS % 2.1 % (0.0-3.0); HEMATOCRIT 35.3 % (36.0-47.0); HEMOGLOBIN 12.4 g/dl (12.0-15.5); LYMPH # 2.8 10^3/uL (1.5-5.0); LYMPH % 39.8 % (24.0-44.0); MEAN CORPUSCULAR HEMOGLOBIN 30.8 pg (27.0-33.0); MEAN CORPUSCULAR HGB CONC 35.1 g/dl (32.0-36.5); MEAN CORPUSCULAR VOLUME 87.6 fl (80.0-96.0); MONO # 0.4 10^3/uL (0.0-0.8); MONO % 5.1 % (2.0-8.0); NEUTROPHILS # 3.7 10^3/uL (1.5-8.5); NEUTROPHILS % 52.3 % (36.0-66.0); PLATELET COUNT, AUTOMATED 206 10^3/uL (150-450); RED BLOOD COUNT 4.03 10^6/uL (4.00-5.40)
[2020-08-19 06:55] LABS: ALBUMIN 3.6 GM/DL (3.2-5.2); ALT/SGPT 28 U/L (12-78); BILIRUBIN,TOTAL 0.6 MG/DL (0.2-1.0); BLOOD UREA NITROGEN 14 MG/DL (7-18); CARBON DIOXIDE LEVEL 23 MEQ/L (21-32); CHLORIDE LEVEL 106 MEQ/L (98-107); CREATININE FOR GFR 0.87 MG/DL (0.55-1.30); GLOMERULAR FILTRATION RATE > 60.0 (>60); GLUCOSE, FASTING 78 MG/DL (70-100); MAGNESIUM LEVEL 2.2 MG/DL (1.8-2.4); SODIUM LEVEL 139 MEQ/L (136-145); TOTAL PROTEIN 6.8 GM/DL (6.4-8.2)
[2020-08-19] MEDS: predniSONE 10 MG TAB PO SCH (08:48)
[2020-08-19] MEDS: CYANOCOBALAMIN 500 MCG TAB PO SCH (08:48)
[2020-08-19] MEDS: PANTOPRAZOLE 40MG TAB (PROTONIX) PO SCH (08:48)
[2020-08-19] MEDS: FLUTICASONE PROP 0.05% NASAL SPRAY 16 GM (FLONASE) SCH (08:48)
[2020-08-19] MEDS ORDERED: POTASSIUM CHLORIDE 10 MEQ SR TABLET PO ONE (09:00)
[2020-08-19 10:00] VITALS: BP 103/79
--- NOTE | 2020-08-19 10:37 | ECHO ---
DATE OF PROCEDURE: 08/18/2020 Age: 30 Gender: Female Height: 158 cm Weight: 58 kg REFERRING PHYSICIAN: Alex Medrano DO. INDICATION: Chest pain. MEASUREMENTS: IVS 1.0 cm LV 2.3 cm LVPW 1.0 cm LA 1.8 cm Aorta 2.4 cm IVC 0.7 cm Mitral E wave velocity 60 cm/s Mitral A wave 57 cm/s E prime septal 8.5 cm/s E prime lateral 9.4 cm/s FINDINGS: This study is only of fair technical quality, which is surprising considering the patients normal body habitus. Underlying sinus rhythm. Left ventricle has normal size and normal systolic function, I estimate LVEF 60% to 65%. The right ventricle is also normal size and systolic function. Both atria appear normal. Aortic valve is tricuspid. It has normal mobility. On poor quality short axis view, there appears to be some brightness in the right coronary cusp possibly indicative of a small calcification. Mitral, tricuspid, and pulmonic valves appear normal. No pericardial effusion is noted. Inferior vena cava is of relatively small caliber and completely collapses with inspiration indicative of normal central venous pressure. Aortic root, aortic arch, and visualized segment of the abdominal aorta all appear normal. Doppler interrogation reveals competent aortic valve. There is trace mitral insufficiency. Tricuspid and pulmonic valves are functionally competent. Mitral inflow pattern and tissue Doppler imaging of the mitral annulus reveal normal diastolic function. CONCLUSIONS: 1. Study is of fair technical quality. Underlying sinus rhythm. 2. Preserved LV systolic function. Preserved diastolic function. 3. No significant valvular disease. 4. Normal central venous pressure. 5. Unable to estimate pulmonary artery pressure, but no signs to suggest pulmonary hypertension. MTDD
[2020-08-19] MEDS ORDERED: PRED10TA2 PO (10:43)
[2020-08-19] MEDS ORDERED: TOPR100T PO (10:43)
[2020-08-19] MEDS: LORazepam 1 MG TAB PO PRN (12:37)
[2020-08-19 12:38] VITALS: BP 114/80
[2020-08-19] MEDS ORDERED: LORA2TAB14 PO ×2 (13:33→13:42)
--- NOTE | 2020-08-19 16:04 | IPN ---
PROGRESS NOTE DATE: 08/18/2020 I was asked by Dr. Medrano to talk to Ms. Valdez again. I was very surprised to hear that she is still in the hospital. Since I saw her last, last week, she has had additional complications. She developed nausea, vomiting, and diarrhea, I suspect most likely as a side effect from colchicine. Her medications have been changed considerably. Today she apparently requests to be transferred to [facility] because of ongoing symptoms. When I meet with the patient, she tells me that she is not feeling well. Her heart rate remains reasonably well controlled at rest, but when she ambulates her heart rate is getting into 140s to 160s range. She feels associated tightness in her chest that has been present from before her current admission. She believes that if she goes home she will have to return immediately, because her symptoms are intolerable. I reviewed the labs. I also reviewed her echocardiogram that I interpreted earlier today. It is essentially normal study. I do not see any wall motion abnormality. No significant valvular disease. There is no pericardial effusion. At this point, I am not certain what is causing patient's chest discomfort. I doubt that she has pericarditis. At least I do not see any convincing evidence of it. She today tells me that even swallowing for her is very painful, and it makes her pain much worse than baseline. It is possible that she has some form of gastrointestinal (GI) etiology, and that may need to be looked at, but I am also skeptical that this is the case. I have to admit that I probably will not be able to resolve this issue, and I probably will not be able to help her in this regard. In the same token, I do not believe she needs to be transferred. I think that if she wants to be seen in outside hospital, she can be discharged home and taken by her to [facility] if necessary. 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 There is typically some fluctuation in symptoms over time. Unfortunately, her Cardizem was discontinued and replaced by metoprolol. I am not happy about these dramatic swings in her medications, but it was felt that Cardizem was causing some of her prior symptoms. At least it seems that metoprolol is well tolerated from the perspective of asthma, and consequently I do not have any objections against its continuation. She probably would respond favorably to Ivabradine, but unfortunately it is not on hospital formulary. At this point, unfortunately I do not have much to contribute to her care. If she wants to be transferred, she certainly has a right to demand different care, but I do not see any true indication for it. I will be happy to see her on outpatient basis if desired.
--- NOTE | 2020-08-19 17:12 | DS.PDOC ---
Discharge Summary General Date of Admission Aug 07, 2020 at 23:09 Date of Discharge 08/19/20 Discharge Summary PROCEDURES PERFORMED DURING STAY: [None]. ADMITTING DIAGNOSES: Acute pericarditis Sinus tachycardia Generalized anxiety disorder Diarrhea/nausea Abdominal pain Asthma DISCHARGE DIAGNOSES: Acute pericarditis Sinus tachycardia Generalized anxiety disorder Diarrhea/nausea/vomiting Abdominal pain Asthma POTS COMPLICATIONS/CHIEF COMPLAINT: Tachycardia. HISTORY OF PRESENT ILLNESS: Ms. Hyde is a 30-year-old female with a past medical history only significant for asthma diagnosed in childhood who presented to the [facility] Emergency Department originally with chest tightness and shortness of breath. The patient states that approximately three weeks ago she had developed some chest pain as well as shortness of breath. At the time, she had thought she was having an asthma exacerbation and was using her inhaler and her nebulizer machine. She stated that this continued to worsen over that week and then she presented to the [facility] at which point she was given oral steroids with Prednisone as well as instructed to continue to use her nebulizer and inhaler. The patient states that over that week she did continue to worsen and then she presented to the [facility] Emergency Department on July 29 with symptoms of worsening chest pain and shortness of breath. At the time, her laboratory workup was otherwise negative. Imaging including CT angiography was negative for any pulmonary embolism. Patient was discharged from [facility] and presumed to be having another asthma attack. Over the following week, the patient continued to have symptoms that worsened. She states that she was having more chest tightness and sharp pains in her chest that radiated to her shoulders. The patient stated this was so severe that she had to return to the Emergency Department on the 06 of August. On the 06 of August she once again received another CTA which was negative for any acute findings. Of interest, is the patient's heart rate was rather tachycardic, and was noted to be upwards of 150 to 180 beats per minute. The patient was admitted to the Hospitalist service for evaluation and management. Since admission, the patient has continued to have chest pain. Her workup has otherwise been negative. She was started on Ibuprofen and Colchicine for presumed pericarditis even though despite having negative inflammatory markers. The patient states that once starting Colchicine as well as Ibuprofen her chest pain did improve somewhat. The patient has been noted to be somewhat tachycardic regardless. She does become more tachycardic with ambulation. She has been started on metoprolol 25 mg b.i.d. This morning, on our evaluation, the patient states that she feels like she is improving although she does state that she still has some tightness in her chest although this is nothing compared to what she was previously. She does note that she can feel sometimes that her heart is racing especially when she gets up to walk to the bathroom. Otherwise, she denies any shortness of breath currently or significant chest pain. Of note, the patient states that she was diagnosed with asthma back in childhood. She states that she only uses an Albuterol inhaler and nebulizer when she has an exacerbation. She states that she does use her inhaler somewhat frequently throughout the week. She does not currently follow with a voltmeter operator and just follows up with Prashant Salazar. She does state that she has had workup for her asthma in the past, however unclear if she receives a full spirometry or not. The patient did state that when this started approximately three weeks that this felt different than her asthma attacks as usually when she has asthma attacks she gets wheezy. She states she has not noticed any wheezes since the start of it approximately three weeks ago. Cardiology was consulted for further evaluation and management of the patient's tachycardia as well as possible pericarditis. HOSPITAL COURSE: During the hospital stay the following issues addressed Acute pericarditis Cardiology recommended to continue colchicine and ibuprofen. I discontinued colchicine due to GI upset symptoms. I discontinued ibuprofen next day Repeated EKG showed ST elevation consistent with acute pericarditis Continue prednisone 10 mg daily echo within normal limit, no pericardial effusion Sinus tachycardia/POTS Cardiology team recommended increasing her dose of diltiazem to 240 mg daily. Patient received diltiazem for a few days however due to continuous nausea and vomiting I discontinued diltiazem. Patient received metoprolol 50 mg every 6 hours with positive effect. Generalized anxiety disorder Continue Atarax, Ativan PRN when necessary DC sertraline 25 mg daily due to nausea and diarrhea Diarrhea/nausea Possible medication side effects versus viral gastroenteritis C. difficile negative Abdominal pain CT abdomen pelvis was done today and showed possible ruptured right ovarian cyst. Rupture of ovarian cyst can be cause of abdominal pain,nausea and vomiting VISION REHABILITATION THERAPIST consulted patient, not any indication for surgical intervention Asthma Not in acute exacerbation Patient doesn't have any wheezes Follow-up with voltmeter operator in the outpatient settings DISCHARGE MEDICATIONS: Please see below. ALLERGIES: Please see below. PHYSICAL EXAMINATION ON DISCHARGE: VITAL SIGNS: Please see below. GENERAL APPEARANCE: NAD HEENT: no scleral icterus, no JVD, EOMI CARDIOVASCULAR: Tachycardic at rate 100 -105 LUNGS: CTA ABDOMEN: soft & mildly tender w palpitation MUSCULOSKELETAL: no cyanosis, no swelling INTEGUMENT: no generalized pallor NEUROLOGICAL: cranial nerve function from 2-12 intact intact, follows commands, speech not dysarthric LABORATORY DATA: Please see below. IMAGING: [facility] NAME: ESTRELLA HYDE : 1990 MEDICAL REC #: [id number] ROOM: [facility] ACCOUNT: [id number] ORDERING DOCTOR: SHELLY PATTERSON DO PATIENT STATUS: ADM IN DICTATING DOCTOR: Elton Carter MD REPORT #: [id number] cc: [~ rep ct ivnm] ECHOCARDIOGRAM-DOPPLER REPORT Printed: [~ rep prt dt last] [~ rep prt tm last] Page 2 of 2 [place] [id number] ECHOCARDIOGRAM-DOPPLER REPORT ECHOCARDIOGRAM-DOPPLER REPORT Printed: [~ rep prt dt last] [~ rep prt tm last] Page 1 of 2 NAME: ESTRELLA HYDE : 1990 MEDICAL REC #: [id number] ROOM: [facility] ACCOUNT: [id number] ORDERING DOCTOR: SHELLY PATTERSON DO PATIENT STATUS: ADM IN DICTATING DOCTOR: Elton Carter MD REPORT #: [id number] cc: [~ rep ct ivnm] DATE OF PROCEDURE: 08/18/2020 Age: 30 Gender: Female Height: 158 cm Weight: 58 kg REFERRING PHYSICIAN: Shelly Patterson DO. INDICATION: Chest pain. MEASUREMENTS: IVS 1.0 cm LV 2.3 cm LVPW 1.0 cm LA 1.8 cm Aorta 2.4 cm IVC 0.7 cm Mitral E wave velocity 60 cm/s Mitral A wave 57 cm/s E prime septal 8.5 cm/s E prime lateral 9.4 cm/s FINDINGS: This study is only of fair technical quality, which is surprising considering the patients normal body habitus. Underlying sinus rhythm. Left ventricle has normal size and normal systolic function, I estimate LVEF 60%to 65%. The right ventricle is also normal size and systolic function. Both atria appear normal. Aortic valve is tricuspid. It has normal mobility. On poor quality short axis view, there appears to be some brightness in the right coronary cusp possibly indicative of a small calcification. Mitral, tricuspid, and pulmonic valves appear normal. No pericardial effusion is noted. Inferior vena cava is of relatively small caliber and completely collapses with inspiration indicative of normal central venous pressure. Aortic root, aortic arch, and visualized segment of the abdominal aorta all appear normal. Doppler interrogation reveals competent aortic valve. There is trace mitral insufficiency. Tricuspid and pulmonic valves are functionally competent. Mitral inflow pattern and tissue Doppler imaging of the mitral annulus reveal normal diastolic function. CONCLUSIONS: 1. Study is of fair technical quality. Underlying sinus rhythm. 2. Preserved LV systolic function. Preserved diastolic function. 3. No significant valvular disease. 4. Normal central venous pressure. 5. Unable to estimate pulmonary artery pressure, but no signs to suggest pulmonary hypertension. DD: Elton Carter MD 08/18/201949 DT: RAUDEL 08/19/20917 DS: DS2: [~ rep ct labl] PROGNOSIS: Fair ACTIVITY: [As tolerated]. DIET: Regular DISPOSITION: 01 Home, Self-Care. ITEMS TO FOLLOWUP ON ON OUTPATIENT: Follow-up with cloth winder and PCP DISCHARGE CONDITION: [Stable]. TIME SPENT ON DISCHARGE: 40 minutes. Vital Signs/I&Os Vital Signs Date Time Temp Pulse Resp B/P (MAP) Pulse Ox O2 Delivery O2 Flow Rate FiO2 08/19/20 12:38 102 114/80 08/19/20 10:00 98.0 16 100 Room Air I&O- Last 24 Hours up to 6 AM 08/19/20 06:00 Intake Total 1240 ml Output Total 1450 ml Balance -210 ml Laboratory Data Labs 24H Laboratory Tests 2 08/19/20 06:00: Immature Granulocyte % (Auto) 0.1, Neutrophils (%) (Auto) 52.3, Lymphocytes (%) (Auto) 39.8, Monocytes (%) (Auto) 5.1, Eosinophils (%) (Auto) 2.1, Basophils (%) (Auto) 0.6, Neutrophils # (Auto) 3.7, Lymphocytes # (Auto) 2.8, Monocytes # (Auto) 0.4, Eosinophils # (Auto) 0.2, Basophils # (Auto) 0.0, Nucleated Red Blood Cells % (auto) 0.0, Anion Gap 10, Glomerular Filtration Rate > 60.0, Calcium Level 9.0, Magnesium Level 2.2, Total Bilirubin 0.6, Aspartate Amino Transf (AST/SGOT) 10, Alanine Aminotransferase (ALT/SGPT) 28, Alkaline Phosphatase 43L, Total Protein 6.8, Albumin 3.6, Albumin/Globulin Ratio 1.1L CBC/BMP Laboratory Tests 08/19/20 06:00 Discharge Medications Scheduled Albuterol Sulf (Albuterol Sulfate) 2.5 Mg/3 Ml Vial.neb, 2.5 MG INH BID, (Reported) Cholecalciferol (Vitamin D3) (Vitamin D3) 1,000 Unit Tablet, 1,000 UNITS PO DAILY, (Reported) Cyanocobalamin (Vitamin B-12) (Vitamin B-12) 500 Mcg Tablet, 500 MCG PO DAILY, (Reported) Fluticasone Propionate (Flonase Allergy Relief) 9.9 Ml [place].susp, 2 SPRAYS NA DAILY, (Reported) Garlic (Garlic) 500 Mg Capsule, 500 MG PO DAILY, (Reported) Metoprolol Succinate (Toprol Xl) 100 Mg Tab.er.24h, 1 TAB PO DAILY Pantoprazole Sodium (Pantoprazole Sodium) 40 Mg Tablet.dr, 40 MG PO DAILY Prednisone (Prednisone) 10 Mg Tablet, 1 TAB PO DAILY Scheduled PRN Albuterol Sulfate (Proair Hfa) 8.5 Gm Hfa.aer.ad, 2 PUFF INH Q4H PRN for SHORTN ESS OF BREATH, (Reported) Hydroxyzine HCl (Hydroxyzine HCl) 25 Mg Tablet, 25 MG PO Q6HP PRN for ANXIETY Lorazepam (Lorazepam) 2 Mg Tablet, 1 TAB PO TIDP PRN for anxiety Nitroglycerin (Nitrostat) 0.4 Mg Tab.subl, 0.4 MG SL Q5MP PRN for CHEST PAIN Allergies Coded Allergies: No Known Allergies (Unverified , 07/29/20) SHELLY PATTERSON DO August 19, 2020 17:12
== END 2020-08-19 13:59 | disposition home or self-care (01) | DRG 309 ==
LOC: M ED 21:53 → M ED INP 21:54 → ENRESERV 08-06 12:35 → M MSPAV 08-06 12:44 → M PCU 08-07 17:48 → OBSVTOIN 08-07 23:09 → M MSPAV 08-10 01:06
PROVIDERS: ADMIT Internal Medicine; ATTEND Internal Medicine
PROC: 02HV33Z Insertion of Infusion Device into Superior Vena Cava, Percutaneous Approach (ICD-10-PCS; principal; 2020-08-15 14:00)
DX: I49.8 Other specified cardiac arrhythmias (principal); I30.9 Acute pericarditis, unspecified; R00.0 Tachycardia, unspecified; J45.909 Unspecified asthma, uncomplicated; F41.1 Generalized anxiety disorder; R11.2 Nausea with vomiting, unspecified; I95.1 Orthostatic hypotension; R19.7 Diarrhea, unspecified; R07.81 Pleurodynia; Z20.822 Contact with and (suspected) exposure to COVID-19; Z79.899 Other long term (current) drug therapy; N83.201 Unspecified ovarian cyst, right side

== ENCOUNTER 2020-10-28 19:25 | Emergency (ER) | payer OTHER ==
[~2020-10-28] VITALS: Ht 157.5 cm; Wt 54.2 kg
[2020-10-28 19:25] VITALS: BP 128/80
[~2020-10-28 19:25] MED LIST changes: +ALBU83IN INH; +ALBU83IN NEB; +CARD120C3 PO; +COLC0.6T47 PO; +D31000TA2 PO; +FLON1SPR; +GARL500C2 PO; +HYDR-3363 PO; +IBUP-1022 PO; +LORA2TAB14 PO; +NITR4TASL SL; +PANT40TA29 PO; +PROAAER10 INH; +TOPR100T PO; +VITA-172 PO
[2020-10-28] MEDS ORDERED: PARO20TA3 PO (19:41)
== END 2020-10-29 01:10 | disposition left against medical advice (07) ==
LOC: M ED 19:25
DX: Z53.21 Procedure and treatment not carried out due to patient leaving prior to being seen by health care provider (principal)

== ENCOUNTER → 2020-11-07 | Outpatient (CLI) | payer OTHER ==
[~2020-11-07] MED LIST changes: +METHACHOLINE KIT (J7674) INH ONE; +PARO20TA3 PO
--- NOTE | 2020-11-07 11:06 | PFTRPT ---
Height: 62.00 Inches Weight: 118.00 Lbs BSA: 1.53 Diagnosis: R06.02 DATE: 11/07/2020 ORDERED BY: Catalina Moreno QUALITY: Study of excellent technical quality. PROCEDURE: Under protocol, methacholine was administered. At a dose of 0.25 mg or 1.375 CDUs, a 28% decline in the FEV1 was noted, PC of 0.05 is significant. Flow rates did return to baseline post bronchodilator administration. IMPRESSION: Positive methacholine challenge study. MTDD
== END ==
LOC: M CARPUL 10:13
PROVIDERS: ATTEND Nurse Practitioner Adult Health
DX: R06.02 Shortness of breath (principal)
CPT/HCPCS: 94070; J7674

== ENCOUNTER → 2022-04-08 | Outpatient (CLI) | payer OTHER ==
[~2022-04-08] MED LIST changes: +ALBU2.5V10 INH; +ALBU2.5V10 NEB; -ALBU83IN INH; -ALBU83IN NEB; -D31000TA2 PO; -METHACHOLINE KIT (J7674) INH ONE; +VITA100093 PO
[2022-04-08 15:47] LABS: BASO # 0.1 10^3/uL (0.0-0.2); BASO % 1.2 % (0.0-1.0); EOS # 0.1 10^3/uL (0.0-0.5); EOS % 1.7 % (0.0-3.0); HEMATOCRIT 34.6 % (36.0-47.0); HEMOGLOBIN 10.8 g/dl (12.0-15.5); LYMPH # 1.9 10^3/uL (1.5-5.0); LYMPH % 37.1 % (24.0-44.0); MEAN CORPUSCULAR HEMOGLOBIN 29.9 pg (27.0-33.0); MEAN CORPUSCULAR HGB CONC 31.2 g/dl (32.0-36.5); MEAN CORPUSCULAR VOLUME 95.8 fl (80.0-96.0); MONO # 0.4 10^3/uL (0.0-0.8); NEUTROPHILS # 2.7 10^3/uL (1.5-8.5); NEUTROPHILS % 52.8 % (36.0-66.0); PLATELET COUNT, AUTOMATED 224 10^3/uL (150-450); RED BLOOD COUNT 3.61 10^6/uL (4.00-5.40); WHITE BLOOD COUNT 5.2 10^3/uL (4.0-10.0)
[2022-04-08 15:48] LABS: URIC ACID 3.5 MG/DL (3.1-7.8)
[2022-04-08 15:50] LABS: C REACTIVE PROTEIN QUANTITATIV < 0.40 MG/DL (<1.0)
[2022-04-08 15:51] LABS: ALBUMIN 3.8 G/DL (3.2-5.2); ALKALINE PHOSPHATASE 49 U/L (46-116); ALT/SGPT 41 U/L (7.0-40); AST/SGOT 28 U/L (<34); BILIRUBIN,TOTAL 0.3 MG/DL (0.3-1.2); BLOOD UREA NITROGEN 14 MG/DL (9-23); CALCIUM LEVEL 9.3 MG/DL (8.5-10.1); CARBON DIOXIDE LEVEL 23 MMOL/L (20-31); CHLORIDE LEVEL 107 MMOL/L (98-107); CREATININE FOR GFR 0.75 MG/DL (0.55-1.30); GLOMERULAR FILTRATION RATE > 60.0 (>60); GLUCOSE, FASTING 86 MG/DL (60-100); POTASSIUM SERUM 4.5 MMOL/L (3.5-5.1); SODIUM LEVEL 141 MMOL/L (136-145); TOTAL PROTEIN 6.7 G/DL (5.7-8.2)
[2022-04-08 15:59] LABS: ERYTHROCYTE SEDIMENTATION RATE 4 mm/hr (0-20)
== END ==
LOC: M PLALAB 09:32
PROVIDERS: ATTEND Nurse Practitioner Adult Health
DX: B33.23 Viral pericarditis (principal)

== ENCOUNTER → 2022-05-19 | Outpatient (CLI) | payer OTHER ==
[2022-05-19 10:23] LABS: BASO % 0.5 % (0.0-1.0); EOS # 0.1 10^3/uL (0.0-0.5); EOS % 2.3 % (0.0-3.0); HEMOGLOBIN 11.9 g/dl (12.0-15.5); LYMPH % 34.6 % (24.0-44.0); MEAN CORPUSCULAR HEMOGLOBIN 30.1 pg (27.0-33.0); MEAN CORPUSCULAR HGB CONC 32.2 g/dl (32.0-36.5); MEAN CORPUSCULAR VOLUME 93.7 fl (80.0-96.0); MONO # 0.3 10^3/uL (0.0-0.8); MONO % 5.7 % (2.0-8.0); NEUTROPHILS # 3.2 10^3/uL (1.5-8.5); NEUTROPHILS % 56.7 % (36.0-66.0); PLATELET COUNT, AUTOMATED 210 10^3/uL (150-450); RED BLOOD COUNT 3.95 10^6/uL (4.00-5.40); WHITE BLOOD COUNT 5.6 10^3/uL (4.0-10.0)
[2022-05-19 10:52] LABS: FOLATE 14.08 NG/ML (>5.4)
[2022-05-19 10:55] LABS: IRON (FE) 70 UG/DL (50-170); PERCENT SATURATION 17.1 % (13.2-45.0); TOTAL IRON BINDING CAPACITY 410 UG/DL (250-425)
[2022-05-19 11:03] LABS: VITAMIN B12 LEVEL > 2000 PG/ML (211-911)
== END ==
LOC: M PLALAB 08:14
PROVIDERS: ATTEND Nurse Practitioner Adult Health
DX: N92.0 Excessive and frequent menstruation with regular cycle (principal)